=== PATIENT | male | born 1950 | race Caucasian/White ===

== ENCOUNTER 2018-04-10 13:42 | Emergency (ER) | payer OTHER, BC ==
--- OUTSIDE RECORDS SUMMARY | 2018-04-10 13:45 | XMS REPORT | Clinical Summary ---
:1950 Author Organization [facility] Address [address] [place] [address] Care Team Providers Name Role Phone Asked, No Pcp Primary Care Provider Unavailable Allergies No Known Allergies Current Medications Prescription Sig. Disp. Refills Start End Status Date Date clonAZEPAM (KlonoPIN) Take 0.5 mg by 2 Active 0.5 MG tablet mouth 3 (three) 6 times a day as needed. risperiDONE Take 1 mg by 2 Active (RisperDAL) 1 MG mouth 2 (two) 6 tablet times a day. traZODone (DESYREL) Take 300 mg by 2 Active 150 MG tablet mouth nightly. 6 PROAIR HFA 90 USE 2 PUFFS BY 6 Active mcg/actuation inhaler MOUTH EVERY 6 6 HOURS NEEDED lithium 300 MG capsule Take 300 mg by Active mouth 2 (two) times a day with meals. gabapentin (NEURONTIN) Take 300 mg by Active 300 mg capsule mouth daily. QUEtiapine XR Take 400 mg by Active (SEROquel XR) 400 MG mouth nightly. 24 hr tablet 2 TABLET mirtazapine (REMERON) Take 15 mg by Active 15 MG tablet mouth nightly. diphenhydrAMINE Take 25 mg by Active (BENADRYL) 25 mg mouth nightly tablet as needed for sleep. fentaNYL (DURAGESIC) Place 1 patch Discontinued on the skin 018 every third day. amitriptyline (ELAVIL) Take 10 mg by 0 Discontinued 10 MG tablet mouth nightly. 6 018 HYDROcodone-acetaminop Take 1 tablet 0 Discontinued hen (NORCO 10-325) by mouth 3 6 018 10-325 mg per tablet (three) times a day. methocarbamol TAKE 1 TABLET 0 Discontinued (ROBAXIN) 500 MG TWICE A DAY FOR 6 018 tablet 28 DAY(S) sertraline (ZOLOFT) Take 200 mg by 2 Discontinued 100 MG tablet mouth every 6 018 morning. levoFLOXacin Take 1 tablet 7 tablet 0 (LEVAQUIN) 500 MG (500 mg total) 8 018 tablet by mouth daily for 7 days. methylPREDNISolone Take 1 tablet 30 tablet 0 (MEDROL) 4 MG tablet (4 mg total) by 8 018 mouth after lunch - one time for 30 days. methylPREDNISolone Take 1 tablet 30 tablet 0 (MEDROL) 4 MG tablet (4 mg total) by 8 018 mouth Medrol Dose Pack Scheduling ONLY for 30 days. methylPREDNISolone Take 1 tablet 70 tablet 0 (MEDROL) 4 MG tablet (4 mg total) by 8 018 mouth 4 times daily tapering for 30 days. methylPREDNISolone Take 1 tablet 90 tablet 0 (MEDROL) 4 MG tablet (4 mg total) by 8 018 mouth 3 times daily around food for 30 days. methylPREDNISolone Take 1 tablet 30 tablet 0 (MEDROL) 8 MG tablet (8 mg total) by 8 018 mouth before breakfast - one time for 30 days. methylPREDNISolone Take 1 tablet 30 tablet 0 (MEDROL) 8 MG tablet (8 mg total) by 8 018 mouth nightly - one time for 30 days. methylPREDNISolone Take 1 tablet 30 tablet 0 (MEDROL) 8 MG tablet (8 mg total) by 8 018 mouth nightly - one time for 30 days. tiotropium (SPIRIVA) Place 1 puff (1 30 capsule 0 18 mcg per inhalation capsule total) 8 018 capsule into inhaler and inhale once daily for 30 days. fluticasone-vilanterol Inhale 1 30 each 0 (BREO ELLIPTA) 100-25 inhalations 8 018 mcg/dose blister with once daily for device powder for 30 days. inhalation albuterol (PROAIR Inhale 2 puffs 18 g 11 HFA,PROVENTIL every 6 (six) 8 018 HFA,VENTOLIN HFA) 90 hours as needed mcg/actuation inhaler for wheezing for up to 30 days. Active Problems Problem Noted Date Suicidal ideation 02/19/2018 Encounters Date Type Specialty Care Team Description 02/18/2018 - Hospital Encounter Intensive Care Hema Zacarias Suicidal ideation (Primary Dx); 02/21/2018 Sterling Mccord, Wheezing; COPD exacerbation; Mariano Madera MD Kandala, Ranganath, MD Korimilli, Vijay, MD 08/31/2017 Emergency Emergency Medicine [place] Mild episode of MD Reji recurrent major depressive disorder (Primary Dx) after 04/09/2017 Family History Medical History Relation Name Comments Cancer Brother Diabetes Brother Heart disease Father Cancer Mother Diabetes Mother Relation Name Status Comments Brother Father Mother Social History Tobacco Use Types Packs/Day Years Used Date Heavy Tobacco Smoker Started: 04/22/1964 Smokeless Tobacco: Current User Alcohol Use Drinks/Week oz/Week Comments No Sex Assigned at Date Recorded Not on file Last Filed Vital Signs Vital Sign Reading Time Taken Blood Pressure 146/88 02/21/2018 7:51 PM CDT Pulse 99 02/21/2018 7:51 PM CDT Temperature 37.3 C (99.1 F) 02/21/2018 8:00 PM CDT Respiratory Rate 20 02/21/2018 7:51 PM CDT Oxygen Saturation 94% 02/21/2018 7:51 PM CDT Inhaled Oxygen Concentration - - Weight 60.1 kg (132 lb 6.4 oz) 02/21/2018 5:00 AM CDT Height 180.3 cm (5' 11") 02/19/2018 7:25 AM CDT Body Mass Index 18.47 02/21/2018 5:00 AM CDT Plan of Treatment Health Maintenance Due Date Last Done Comments COLON CANCER SCREENING 1999 SHINGRIX VACCINE (#1) 1999 ZOSTER VACCINE 2009 PNEUMOCOCCAL POLYSACCHARIDE VACCINE AGE 65 AND OVER 2014 PNEUMOCOCCAL-13 2014 INFLUENZA VACCINE 05/02/2018 Procedures Procedure Name Priority Date/Time Associated Comments Diagnosis ESTIMATED GFR Routine 02/21/2018 5:10 Results for this AM CDT procedure are in the results section. HC COMPLETE BLD COUNT Routine 02/21/2018 5:10 Results for this W/AUTO DIFF AM CDT procedure are in the results section. BASIC METABOLIC PANEL Routine 02/21/2018 5:10 Results for this AM CDT procedure are in the results section. ECG 12-LEAD Routine 02/20/2018 8:32 Results for this AM CDT procedure are in the results section. ESTIMATED GFR Routine 02/20/2018 3:34 Results for this AM CDT procedure are in the results section. PHOSPHORUS LEVEL Routine 02/20/2018 3:34 Results for this AM CDT procedure are in the results section. MAGNESIUM LEVEL Routine 02/20/2018 3:34 Results for this AM CDT procedure are in the results section. IONIZED CALCIUM Routine 02/20/2018 3:34 Results for this AM CDT procedure are in the results section. HC COMPLETE BLD COUNT Routine 02/20/2018 3:34 Results for this W/AUTO DIFF AM CDT procedure are in the results section. BASIC METABOLIC PANEL Routine 02/20/2018 3:34 Results for this AM CDT procedure are in the results section. TROPONIN Timed 02/19/2018 9:53 Results for this AM CDT procedure are in the results section. ECG 12-LEAD Routine 02/19/2018 8:37 Results for this AM CDT procedure are in the results section. POC GLUCOSE Routine 02/19/2018 8:15 Results for this AM CDT procedure are in the results section. POC GLUCOSE Routine 02/19/2018 4:17 Results for this AM CDT procedure are in the results section. TROPONIN Timed 02/19/2018 4:00 Results for this AM CDT procedure are in the results section. ECG 12-LEAD Routine 02/19/2018 3:11 Results for this AM CDT procedure are in the results section. TROPONIN Timed 02/18/2018 11:20 Results for this PM CDT procedure are in the results section. URINE DRUGS OF ABUSE STAT 02/18/2018 11:00 Results for this SCREEN PM CDT procedure are in the results section. URINALYSIS SCREEN AND STAT 02/18/2018 11:00 Results for this MICROSCOPY, WITH REFLEX PM CDT procedure are in TO CULTURE the results section. URINE CULTURE STAT 02/18/2018 11:00 Results for this PM CDT procedure are in the results section. POC GLUCOSE Routine 02/18/2018 9:40 Results for this PM CDT procedure are in the results section. CT HEAD WO CONTRAST STAT 02/18/2018 8:16 Results for this PM CDT procedure are in the results section. ESTIMATED GFR STAT 02/18/2018 7:35 Results for this PM CDT procedure are in the results section. SALICYLATE LEVEL STAT 02/18/2018 7:35 Results for this PM CDT procedure are in the results section. ACETAMINOPHEN LEVEL STAT 02/18/2018 7:35 Results for this PM CDT procedure are in the results section. ALCOHOL LEVEL, BLOOD STAT 02/18/2018 7:35 Results for this PM CDT procedure are in the results section. THYROID STIMULATING STAT 02/18/2018 7:35 Results for this HORMONE PM CDT procedure are in the results section. T4, FREE STAT 02/18/2018 7:35 Results for this PM CDT procedure are in the results section. B NATRIURETIC PEPTIDE STAT 02/18/2018 7:35 Results for this PM CDT procedure are in the results section. TROPONIN STAT 02/18/2018 7:35 Results for this PM CDT procedure are in the results section. CREATINE KINASE, TOTAL STAT 02/18/2018 7:35 Results for this (CPK) PM CDT procedure are in the results section. COMPREHENSIVE METABOLIC STAT 02/18/2018 7:35 Results for this PANEL PM CDT procedure are in the results section. HC COMPLETE BLD COUNT STAT 02/18/2018 7:35 Results for this W/AUTO DIFF PM CDT procedure are in the results section. XR CHEST 1 VW PORTABLE STAT 02/18/2018 7:30 Results for this PM CDT procedure are in the results section. ECG 12-LEAD STAT 02/18/2018 7:19 Results for this PM CDT procedure are in the results section. ECG ED PRELIMINARY Routine 02/18/2018 7:08 Results for this INTERPRETATION PM CDT procedure are in the results section. POC GLUCOSE Routine 02/18/2018 7:08 Results for this PM CDT procedure are in the results section. ECG ED PRELIMINARY Routine 08/31/2017 3:50 Results for this INTERPRETATION PM [facility]ACT[facility]ESSION[facility] procedure are in the results section. after 04/09/2017 Results Estimated GFR (02/21/2018 5:10 AM)Only the most recent of3 resultswithin the time period is included. GFR Non Af Amer 84 mL/min/1.73 m2 [facility] DEPARTMENT OF PATHOLOGY AND GENOMIC MEDICINE GFR Af Amer >90 mL/min/1.73 m2 [facility] DEPARTMENT OF Comment: PATHOLOGY AND GENOMIC Chronic kidney disease: <60 mL/min/1.73m2 MEDICINE Kidney failure: <15 mL/min/1.73m2 The estimated GFR is calculated from the IDMS-traceable Modification of Diet in Renal Disease Equation. The accuracy of the calculation is poor when the creatinine is normal. Calculated values >90 mL/min/1.73m2 are not reported. This equation has not been validated in children (<18 years), women, the elderly (>70 years), or ethnic groups other than Caucasians and Americans. Specimen Plasma specimen Performing Organization Address City/State/Zipcode Phone Number [facility] DEPARTMENT OF PATHOLOGY [address] [place] [address] AND [facility] CBC with platelet and differential (02/21/2018 5:10 AM)Only the most recent of3 resultswithin the time period is included. WBC 22.9 (H) 4.5 - 11.0 k/uL [facility] DEPARTMENT OF PATHOLOGY AND GENOMIC MEDICINE RBC 4.25 (L) 4.40 - 6.00 m/uL [facility] DEPARTMENT OF PATHOLOGY AND GENOMIC MEDICINE HGB 13.5 (L) 14.0 - 18.0 g/dL [facility] DEPARTMENT OF PATHOLOGY AND GENOMIC MEDICINE HCT 41.3 41.0 - 51.0 % [facility] DEPARTMENT OF PATHOLOGY AND GENOMIC MEDICINE MCV 97.2 82.0 - 100.0 fL [facility] DEPARTMENT OF PATHOLOGY AND GENOMIC MEDICINE MCH 31.8 27.0 - 34.0 pg [facility] DEPARTMENT OF PATHOLOGY AND GENOMIC MEDICINE MCHC 32.7 31.0 - 37.0 g/dL [facility] DEPARTMENT OF PATHOLOGY AND GENOMIC MEDICINE RDW - SD 57.6 (H) 37.0 - 55.0 fL [facility] DEPARTMENT OF PATHOLOGY AND GENOMIC MEDICINE MPV 9.8 6.9 - 11.0 fL [facility] DEPARTMENT OF PATHOLOGY AND GENOMIC MEDICINE Platelet count 348 150 - 400 K/uL [facility] DEPARTMENT OF PATHOLOGY AND GENOMIC MEDICINE Nucleated RBC 0.00 /100 WBC [facility] DEPARTMENT OF PATHOLOGY AND GENOMIC MEDICINE Neutrophils 94.2 (H) 39.0 - 69.0 % [facility] DEPARTMENT OF PATHOLOGY AND GENOMIC MEDICINE Lymphocytes 2.3 (L) 25.0 - 45.0 % [facility] DEPARTMENT OF PATHOLOGY AND GENOMIC MEDICINE Monocytes 2.8 0.0 - 10.0 % [facility] DEPARTMENT OF PATHOLOGY AND GENOMIC MEDICINE Eosinophils 0.0 0.0 - 5.0 % [facility] DEPARTMENT OF PATHOLOGY AND GENOMIC MEDICINE Basophils 0.1 0.0 - 1.0 % [facility] DEPARTMENT OF PATHOLOGY AND GENOMIC MEDICINE Immature granulocytes 0.6 0.0 - 1.0 % [facility] DEPARTMENT OF PATHOLOGY AND GENOMIC MEDICINE Specimen Blood Performing Organization Address City/[facility] Phone Number [facility] DEPARTMENT OF PATHOLOGY [address] [place] [address] [employer] Basic metabolic panel (02/21/2018 5:10 AM)Only the most recent of2 resultswithin the time period is included. Sodium 140 135 - 148 mEq/L [facility] DEPARTMENT OF PATHOLOGY AND GENOMIC MEDICINE Potassium 4.4 3.5 - 5.0 mEq/L [facility] DEPARTMENT OF PATHOLOGY AND GENOMIC MEDICINE Chloride 106 98 - 112 mEq/L [facility] DEPARTMENT OF PATHOLOGY AND GENOMIC MEDICINE CO2 21 (L) 24 - 31 mEq/L [facility] DEPARTMENT OF PATHOLOGY AND GENOMIC MEDICINE Anion gap 13@ANIO 7 - 15 mEq/L [facility] DEPARTMENT OF PATHOLOGY AND GENOMIC MEDICINE BUN 24 (H) 8 - 23 mg/dL [facility] DEPARTMENT OF PATHOLOGY AND GENOMIC MEDICINE Creatinine 0.9 0.7 - 1.2 mg/dL [facility] DEPARTMENT OF PATHOLOGY AND GENOMIC MEDICINE Glucose 127 (H) 65 - 99 mg/dL [facility] DEPARTMENT OF PATHOLOGY AND GENOMIC MEDICINE Calcium 9.6 8.8 - 10.2 mg/dL [facility] DEPARTMENT OF PATHOLOGY AND GENOMIC MEDICINE Specimen Plasma specimen Performing Organization Address [facility] Centercode Phone Number [facility] PATHOLOGY [address] [place] [phone] [facility] [employer] ECG 12 lead (02/20/2018 8:32 AM)Only the most recent of4 resultswithin the time period is included. Ventricular rate 92 [facility] Atrial rate 92 [facility] VT interval 162 [facility] QRSD interval 96 [facility] QT interval 364 [facility] QTC interval 450 [facility] P axis 1 79 [facility] QRS axis 1 79 [facility] T wave axis 62 [facility] EKG impression Normal sinus rhythm-ST elevation, consider inferior injury or acute infarct-Abnormal ECG-In automated comparison with ECG of 19-FEB-2018 08:37 ,-ST elevation now present in Inferior leads-Nonspecific T wave abnormality no longer evident in Lateral [facility] MUSE leads-Electronically Signed By Alex Beth ([id number]) on 2017 10:37:12 AM Performing Organization Address City/State/Zipcode Phone Number [facility] MUSE [address] [place] [address] Phosphorus level (02/20/2018 3:34 AM) Phosphorus 3.5 2.4 - 4.5 mg/dL [facility] DEPARTMENT OF PATHOLOGY AND GENOMIC MEDICINE Specimen Plasma specimen Performing Organization Address City/[facility] Centercode Phone Number [facility] DEPARTMENT OF PATHOLOGY [address] [place] [address]. [place] [address] AND [facility] Magnesium level (02/20/2018 3:34 AM) Magnesium 2.1 1.6 - 2.4 mg/dL [facility] DEPARTMENT OF PATHOLOGY AND GENOMIC MEDICINE Specimen Plasma specimen Performing Organization Address [facility] Centercode Phone Number [facility] DEPARTMENT OF PATHOLOGY [address] [place] [address]. [place] [address] AND [facility] Ionized calcium (02/20/2018 3:34 AM) pH 7.42 [facility] DEPARTMENT OF PATHOLOGY AND GENOMIC MEDICINE Ionized calcium 1.19 1.11 - 1.32 mmol/L [facility] DEPARTMENT OF PATHOLOGY AND GENOMIC MEDICINE Specimen Plasma specimen Performing Organization Address [facility] Centercode Phone Number [facility] DEPARTMENT OF PATHOLOGY [address] [place] [address]. [place] [address] AND [facility] Troponin (02/19/2018 9:53 AM)Only the most recent of4 resultswithin the time period is included. Troponin <0.30 0.00 - 0.30 ng/mL [facility] DEPARTMENT OF PATHOLOGY Comment: AND GENOMIC MEDICINE 0.11 - 1.49 ng/mlMay indicate increased risk of acute coronary syndrome. >=1.5 ng/mlConsistent with acute myocardial infarction. The diagnostic value of a single normal or non-diagnostic result is questionable.Serial samples at 2-6 hour intervals are required to rule out acute myocardial injury. Specimen Plasma specimen Performing Organization Address City/State/Zipcode Phone Number [facility] DEPARTMENT OF PATHOLOGY [address] [place] [phone] AND [facility] POC glucose (02/19/2018 8:15 AM)Only the most recent of4 resultswithin the time period is included. POC glucose 158 (H) 65 - 99 mg/dL [facility] DEPARTMENT OF PATHOLOGY AND Comment: GENOMIC MEDICINE RN Notified Meter ID: [id number] Transition Advisor: Shellie Nieto Performing Organization Address City/[facility] Centercode Phone Number [facility] DEPARTMENT OF PATHOLOGY [address] [place] [address] AND [facility] Urinalysis screen and microscopy, with reflex to culture (02/18/2018 11:00 PM) Specimen site Clean catch [facility] DEPARTMENT OF PATHOLOGY AND GENOMIC MEDICINE Color, UA Yellow [facility] DEPARTMENT OF PATHOLOGY AND GENOMIC MEDICINE Appearance, UA Clear [facility] DEPARTMENT OF PATHOLOGY AND GENOMIC MEDICINE Specific gravity, UA 1.018 1.001 - 1.030 [facility] DEPARTMENT OF PATHOLOGY AND GENOMIC MEDICINE pH, UA 6.0 5.0 - 9.0 [facility] DEPARTMENT OF PATHOLOGY AND GENOMIC MEDICINE Protein, UA Negative Negative [facility] DEPARTMENT OF PATHOLOGY AND GENOMIC MEDICINE Glucose, UA Negative Negative [facility] DEPARTMENT OF PATHOLOGY AND GENOMIC MEDICINE Ketones, UA Negative Negative [facility] DEPARTMENT OF PATHOLOGY AND GENOMIC MEDICINE Bilirubin, UA Negative Negative [facility] DEPARTMENT OF PATHOLOGY AND GENOMIC MEDICINE Blood, UA Negative Negative [facility] DEPARTMENT OF PATHOLOGY AND GENOMIC MEDICINE Nitrite, UA Negative Negative [facility] DEPARTMENT OF PATHOLOGY AND GENOMIC MEDICINE Urobilinogen, UA 2.0 (A) <2.0 E.U./dL [facility] DEPARTMENT OF PATHOLOGY AND GENOMIC MEDICINE Leukocyte esterase, UA Negative Negative [facility] DEPARTMENT OF PATHOLOGY AND GENOMIC MEDICINE Epithelial cells, UA <1 /HPF [facility] DEPARTMENT OF PATHOLOGY AND GENOMIC MEDICINE Round epithelial cells, UA <1 0 - 5 /HPF [facility] DEPARTMENT OF PATHOLOGY AND GENOMIC MEDICINE WBC, UA 1 0 - 1 /HPF [facility] DEPARTMENT OF PATHOLOGY AND GENOMIC MEDICINE RBC, UA 1 0 - 5 /HPF [facility] DEPARTMENT OF PATHOLOGY AND GENOMIC MEDICINE Bacteria, UA None seen None seen [facility] DEPARTMENT OF PATHOLOGY AND GENOMIC MEDICINE Yeast, UA None seen [facility] DEPARTMENT OF PATHOLOGY AND GENOMIC MEDICINE Yeast with pseudohyphae, UA None seen [facility] DEPARTMENT OF PATHOLOGY AND GENOMIC MEDICINE Specimen Urine Performing Organization Address City/[facility]ercode Phone Number [facility] DEPARTMENT OF PATHOLOGY [address] [place] [phone] AND [facility] Urine drugs of abuse screen (02/18/2018 11:00 PM) Amphetamine screen, urine Negative [facility] DEPARTMENT OF PATHOLOGY AND GENOMIC MEDICINE Barbiturate screen, urine Negative [facility] DEPARTMENT OF PATHOLOGY AND GENOMIC MEDICINE Benzodiazepine screen, Positive (A) [facility] DEPARTMENT OF urine PATHOLOGY AND GENOMIC MEDICINE Cannabinoid screen, urine Negative [facility] DEPARTMENT OF PATHOLOGY AND GENOMIC MEDICINE Cocaine screen, urine Negative [facility] DEPARTMENT OF PATHOLOGY AND GENOMIC MEDICINE Methadone metabolite Negative [facility] DEPARTMENT OF (EDDP), urine PATHOLOGY AND GENOMIC MEDICINE Opiates screen, urine Negative [facility] DEPARTMENT OF PATHOLOGY AND GENOMIC MEDICINE Phencyclidine screen, urine Negative [facility] DEPARTMENT OF PATHOLOGY AND GENOMIC MEDICINE Tricyclic screen, urine Positive (A) [facility] DEPARTMENT OF Comment: PATHOLOGY AND GENOMIC Drug screen minimum concentration of detectability MEDICINE [id number] ng/mL Barbiturates 200 ng/mL Qfezpxqmqrqwzfr645 ng/mL Qaitzzf933 ng/mL Hgftnwqtb075 ng/mL Taepfwi077 ng/mL Phencyclidine 25 ng/mL Rdtthlvxweye53 ng/mL [id number] ng/mL Negative test results indicates presumptive evidence of lack of clinically significant drug concentration in this urine specimen. Positive test results are presumptive evidence of clinically significant drug concentration in this urine specimen. Testing performed for medical purposes only. Specimen Urine Performing Organization Address City/State/Zipcode Phone Number [facility] DEPARTMENT OF PATHOLOGY [address] [place] [address] AND [facility] Urine culture (02/18/2018 11:00 PM) Urine culture SEE COMMENTComment: Bacteriuria [facility] DEPARTMENT OF PATHOLOGY screen negative. AND [facility] MEDICINE Performing Organization Address City/State/Zipcode Phone Number [facility] DEPARTMENT OF PATHOLOGY [address] [place] [address] AND [facility] CT Head Wo Contrast (02/18/2018 8:16 PM) Narrative Performed At EXAMINATION:CT HEAD WO CONTRAST [facility] CLINICAL HISTORY:head injury during si attempt COMPARISON:March 03, 2014 TECHNIQUE: CT imaging was performed with iterative reconstruction technique and/or automated exposure control to reduce radiation dose. Findings: No intracranial hemorrhage, acute transcortical ischemia, extra-axial fluid collections or parenchymal mass lesions. No skull fractures or aggressive bony lesions. Intracranial vascular calcifications. Moderate mucosal inflammatory changes in paranasal sinuses. Mastoid air cells are clear. IMPRESSION: No acute intracranial abnormalities. [facility]-[id number] Procedure Note Hm Interface, Radiology Results Incoming - 02/18/2018 8:22 PM CDT EXAMINATION: CT HEAD WO CONTRAST CLINICAL HISTORY: head injury during si attempt COMPARISON: March 03, 2014 TECHNIQUE: CT imaging was performed with iterative reconstruction technique and /or automated exposure control to reduce radiation dose. Findings: No intracranial hemorrhage, acute transcortical ischemia, extra-axial fluid collections or parenchymal mass lesions. No skull fractures or aggressive bony lesions. Intracranial vascular calcifications. Moderate mucosal inflammatory changes in paranasal sinuses. Mastoid air cells are clear. IMPRESSION: No acute intracranial abnormalities. [facility]-[id number] Performing Organization Address City/[facility]/Zipcode Phone Number [facility] [address] [place] [address] Thyroid stimulating hormone (02/18/2018 7:35 PM) TSH 1.87 0.27 - 4.20 uIU/mL [facility] DEPARTMENT OF PATHOLOGY AND [facility] MEDICINE Specimen Plasma specimen Performing Organization Address [facility] Phone Number [facility] DEPARTMENT OF PATHOLOGY [address] [place] [address]. [place] [address] AND [facility] T4, free (02/18/2018 7:35 PM) T4, free 1.1 0.9 - 1.7 ng/dL [facility] DEPARTMENT OF PATHOLOGY AND [facility] MEDICINE Specimen Plasma specimen Performing Organization Address [facility] Phone Number [facility] DEPARTMENT OF PATHOLOGY [address] [place] [address]. [place] [address] AND [facility] B natriuretic peptide (02/18/2018 7:35 PM) BNP 10 0 - 100 pg/mL [facility] DEPARTMENT OF PATHOLOGY AND [facility] MEDICINE Specimen Blood Performing Organization Address [facility] Phone Number [facility] DEPARTMENT OF PATHOLOGY [address] [place] [address]. [place] [address] [facility] Creatine kinase, total (CPK) (02/18/2018 7:35 PM) Creatine kinase 41 39 - 308 U/L [facility] DEPARTMENT OF PATHOLOGY AND Intrinsic Medical Imaging MEDICINE Specimen Plasma specimen Performing Organization Address [facility] Cent[facility]ode Phone Number [facility] DEPARTMENT OF PATHOLOGY [address] [place] [address]. [place] [address] [facility] Alcohol level, blood (02/18/2018 7:35 PM) Alcohol None Detected mg/dL [facility] DEPARTMENT OF PATHOLOGY Comment: AND GENOMIC MEDICINE Normal None Detected Legal Intoxication in [place]80 mg/dL (0.08%) - Whole Blood Toxic [id number] mg/dL (0.2%) Potentially Felil702 - 500 mg/dL (0.35 - 0.5%) Alcohol percent None Detected % [facility] DEPARTMENT OF PATHOLOGY AND GENOMIC MEDICINE Specimen Plasma specimen Performing Organization Address City/[facility] Centercode Phone Number [facility] DEPARTMENT OF PATHOLOGY [address] [place] [address] [facility] Acetaminophen level (02/18/2018 7:35 PM) Acetaminophen level <8.3 10.0 - 30.0 ug/mL [facility] DEPARTMENT OF Comment: PATHOLOGY AND GENOMIC Therapeutic 10-30 ug/mL MEDICINE Possible Toxicity 150-200 ug/mL Probable Toxicity >200 ug/mL Specimen Plasma specimen Performing Organization Address City/State/Zipcode Phone Number [facility] DEPARTMENT OF PATHOLOGY [address] [place] [address] [facility] Salicylate level (02/18/2018 7:35 PM) Salicylate <0.4 (L) 3.0 - 30.0 mg/dL [facility] DEPARTMENT OF PATHOLOGY AND GENOMIC MEDICINE Specimen Plasma specimen Performing Organization Address City/[facility] Phone Number [facility] DEPARTMENT OF PATHOLOGY [address] [place] [address] [facility] Comprehensive metabolic panel (02/18/2018 7:35 PM) Sodium 140 135 - 148 mEq/L [facility] DEPARTMENT OF PATHOLOGY AND GENOMIC MEDICINE Potassium 4.3 3.5 - 5.0 mEq/L [facility] DEPARTMENT OF PATHOLOGY AND GENOMIC MEDICINE Chloride 103 98 - 112 mEq/L [facility] DEPARTMENT OF PATHOLOGY AND GENOMIC MEDICINE CO2 26 24 - 31 mEq/L [facility] DEPARTMENT OF PATHOLOGY AND GENOMIC MEDICINE Anion gap 11@ANIO 7 - 15 mEq/L [facility] DEPARTMENT OF PATHOLOGY AND GENOMIC MEDICINE BUN 15 8 - 23 mg/dL [facility] DEPARTMENT OF PATHOLOGY AND GENOMIC MEDICINE Creatinine 1.0 0.7 - 1.2 mg/dL [facility] DEPARTMENT OF PATHOLOGY AND GENOMIC MEDICINE Glucose 141 (H) 65 - 99 mg/dL [facility] DEPARTMENT OF PATHOLOGY AND GENOMIC MEDICINE Calcium 9.8 8.8 - 10.2 mg/dL [facility] DEPARTMENT OF PATHOLOGY AND GENOMIC MEDICINE Protein 7.2 6.3 - 8.3 g/dL [facility] DEPARTMENT OF PATHOLOGY AND GENOMIC MEDICINE Albumin 4.2 3.5 - 5.0 g/dL [facility] DEPARTMENT OF PATHOLOGY AND GENOMIC MEDICINE A/G ratio 1.4 0.7 - 3.8 [facility] DEPARTMENT OF PATHOLOGY AND GENOMIC MEDICINE Alkaline phosphatase 131 (H) 40 - 129 U/L [facility] DEPARTMENT OF PATHOLOGY AND GENOMIC MEDICINE AST 15 10 - 50 U/L [facility] DEPARTMENT OF PATHOLOGY AND GENOMIC MEDICINE ALT 8 5 - 50 U/L [facility] DEPARTMENT OF PATHOLOGY AND GENOMIC MEDICINE Total bilirubin 0.3 0.2 - 1.2 mg/dL [facility] DEPARTMENT OF PATHOLOGY AND GENOMIC MEDICINE Specimen Plasma specimen Performing Organization Address City/[facility] Centercode Phone Number [facility] DEPARTMENT OF PATHOLOGY [address] [place] [address] AND [facility]IC MEDICINE XR Chest 1 Vw Portable (02/18/2018 7:30 PM) Narrative Performed At EXAMINATION:XR CHEST 1 VW PORTABLE [facility] CLINICAL HISTORY:SHORTNESS OF BREATH COMPARISON:No priors IMPRESSION: Prominent scoliosis. Heart and mediastinum somewhat distorted. Bones are osteopenic. No definite consolidations are seen. [facility]-[id number] Procedure Note Hm Interface, Radiology Results Incoming - 02/18/2018 7:40 PM CDT EXAMINATION: XR CHEST 1 VW PORTABLE CLINICAL HISTORY: SHORTNESS OF BREATH COMPARISON: No priors IMPRESSION: Prominent scoliosis. Heart and mediastinum somewhat distorted. Bones are osteopenic. No definite consolidations are seen. [facility]-[id number] Performing Organization Address [facility] Centercode Phone Number [facility] [address] [place] [address] ECG ED Preliminary Interpretation - NOT AN ORDER (02/18/2018 7:08 PM)Only the most recent of2 resultswithin the time period is included. Narrative Performed At [facility] 02/19/20184:12 AM ECG ED Preliminary Interpretation - Not an Order Performed by: REGINO CULLEN Authorized by: HEMA ZACARIAS ECG reviewed by ED Physician in the absence of a corporate legal intern: yes Previous ECG: Previous ECG:Unavailable Interpretation: Interpretation: normal Rate: ECG rate:77 ECG rate assessment: normal Rhythm: Rhythm: sinus rhythm Ectopy: Ectopy: none QRS: QRS intervals:Normal Conduction: Conduction: normal ST segments: ST segments:Normal T waves: T waves: normal after 04/09/2017 Insurance Payer Benefit Plan / Group Subscriber ID Type Phone Address BCBS BCBS PAR/TRAD PLAN xxxxxxxxxxxx Indemnity MEDICARE MEDICARE PART A AND B xxxxxxxxxx Medicare [facility] CHOICE/CHOICE + xxxxxxxxx HMO/PPO Home: [address] [place], [place] [phone] [place] [address]
--- NOTE | 2018-04-10 14:43 | EDPHYS ---
Physician Documentation [facility] Name: Corey Mcadams Age: 67 yrs Sex: Male : 1950 Arrival Date: 04/10/2018 Time: 13:46 Bed 13 Private MD: Cecil Capellan R ED Physician Jeferson Walton HPI: 04/10 18:25 This 67 yrs old Male presents to ER via Ambulatory with complaints of Back gs Pain, Hearing Problems. 18:25 The patient presents with pain that is chronic. The symptoms are located in the lumbar gs area. Onset: The symptoms/episode began/occurred 1 week(s) ago. The pain does not radiate. Associated signs and symptoms: Pertinent negatives: abdominal pain, chest pain, constipation, incontinence, numbness. Modifying factors: the patient symptoms are aggravated by bending, lifting. Severity of symptoms: At their worst the symptoms were moderate, in the emergency department the symptoms have improved, mildly. The patient has experienced similar episodes in the past, chronically, has scoliosis. Historical: - Allergies: 14:08 No Known Allergies; aj - Home Meds: 14:08 fluoxetine 60 mg Oral tab 1 tab once daily [Active]; quetiapine 300 mg Oral tab 1 tab aj once daily [Active]; clonazepam 0.5 mg Oral TbDL 1 tab 2 times per day [Active]; trazodone 100 mg Oral tab 1 tab nightly [Active]; Vitamin E 400 IU 1 daily [Active]; B-6 100 mg one tab daily [Active]; - PMHx: 14:08 Anxiety; Bipolar disorder; Depression; aj - PSHx: 14:08 Appendectomy; aj - Immunization history:: Adult Immunizations up to date. - Social history:: Smoking status: Patient uses tobacco products, smokes one-half pack cigarettes per day. - Ebola Screening: : Patient negative for fever greater than or equal to 101.5 degrees Fahrenheit, and additional compatible Ebola Virus Disease symptoms Patient denies exposure to infectious person Patient denies travel to an Ebola-affected area in the 21 days before illness onset No symptoms or risks identified at this time. ROS: 18:25 Psych: Positive for auditory hallucinations, says hears music playing from time to time gs for over 20 years, Negative for suicide gesture, suicidal ideation, acute changes. Exam: 18:25 Head/Face: Normocephalic, atraumatic. Eyes: Pupils equal round and reactive to light, gs extra-ocular motions intact. Lids and lashes normal. Conjunctiva and sclera are non-icteric and not injected. Cornea within normal limits. Periorbital areas with no swelling, redness, or edema. ENT: Nares patent. No nasal discharge, no septal abnormalities noted. Tympanic membranes are normal and external auditory canals are clear. Oropharynx with no redness, swelling, or masses, exudates, or evidence of obstruction, uvula midline. Mucous membranes moist. Neck: Trachea midline, no thyromegaly or masses palpated, and no cervical lymphadenopathy. Supple, full range of motion without nuchal rigidity, or vertebral point tenderness. No Meningismus. Chest/axilla: Normal chest wall appearance and motion. Nontender with no deformity. No lesions are appreciated. Cardiovascular: Regular rate and rhythm with a normal S1 and S2. No gallops, murmurs, or rubs. Normal PMI, no JVD. No pulse deficits. Respiratory: Lungs have equal breath sounds bilaterally, clear to auscultation and percussion. No rales, rhonchi or wheezes noted. No increased work of breathing, no retractions or nasal flaring. Abdomen/GI: Soft, non-tender, with normal bowel sounds. No distension or tympany. No guarding or rebound. No evidence of tenderness throughout. Skin: Warm, dry with normal turgor. Normal color with no rashes, no lesions, and no evidence of cellulitis. MS/ Extremity: Pulses equal, no cyanosis. Neurovascular intact. Full, normal range of motion. Neuro: Awake and alert, GCS 15, oriented to person, place, time, and situation. Cranial nerves II-XII grossly intact. Motor strength 5/5 in all extremities. Sensory grossly intact. Cerebellar exam normal. Normal gait. 18:25 Constitutional: The patient appears alert, awake. 18:25 Back: Exam negative for acute changes, vertebral tenderness, significant scoliosis. Vital Signs: 14:08 BP 128 / 79; Pulse 87; Resp 18; Temp 98.8; Pulse Ox 97% on R/A; Weight 58.97 kg; Height aj 5 ft. 11 in. (180.34 cm); 15:00 BP 126 / 74; Pulse 82; Resp 19; Pulse Ox 98% on R/A; rb1 14:08 Body Mass Index 18.13 (58.97 kg, 180.34 cm) aj MDM: 14:42 Patient medically screened. gs 18:25 Data reviewed: vital signs, nurses notes. gs Administered Medications: No medications were administered Disposition: 04/10/18 14:43 Discharged to Home. Impression: Chronic pain syndrome, Auditory hallucinations. - Condition is Stable. - Discharge Instructions: Chronic Pain, Psychosis. - Medication Reconciliation Form, Thank You Letter, Antibiotic Education, Prescription Opioid Use form. - Follow up: Private Physician; When: 2 - 3 days; Reason: Re-evaluation by your physician. Signatures: Milana Akins RN RN aj Alyson An RN RN rb1 Jeferson Walton MD MD gs Corrections: (The following items were deleted from the chart) 15:22 14:43 04/10/2018 14:43 Discharged to Home. Impression: Chronic pain syndrome; Auditory rb1 hallucinations. Condition is Stable. Forms are Medication Reconciliation Form, Thank You Letter, Antibiotic Education, Prescription Opioid Use. Follow up: Private Physician; When: 2 - 3 days; Reason: Re-evaluation by your physician. gs
--- NOTE | 2018-04-10 14:43 | ER ---
Nurse's Notes [facility] Name: Corey Mcadams Age: 67 yrs Sex: Male : 1950 Arrival Date: 04/10/2018 Time: 13:46 Bed 13 Private MD: Cecil Capellan R Diagnosis: Chronic pain syndrome;Auditory hallucinations Presentation: 04/10 14:06 Presenting complaint: Patient states: Low back pain and C/O song repeating in his head. aj Transition of care: patient was not received from another setting of care. Onset of symptoms was April 10, 2018. Risk Assessment: Do you want to hurt yourself or someone else? Patient reports no desire to harm self or others. Initial Sepsis Screen: Does the patient meet any 2 criteria? No. Patient's initial sepsis screen is negative. Does the patient have a suspected source of infection? No. Patient's initial sepsis screen is negative. Care prior to arrival: None. 14:06 Method Of Arrival: Ambulatory aj 14:06 Acuity: CHERRY 4 aj Triage Assessment: 14:08 General: Appears in no apparent distress. comfortable, Behavior is calm, cooperative, aj appropriate for age. Pain: Complains of pain in lumbar area. Neuro: Level of Consciousness is awake, alert, obeys commands, Oriented to person, place, time, situation, Appropriate for age. Respiratory: Airway is patent Respiratory effort is even, unlabored, Respiratory pattern is regular, symmetrical. Derm: Skin is intact, is healthy with good turgor, Skin is pink, warm \T\ dry. normal. Musculoskeletal: Range of motion: Reports pain in lumbar area. Historical: - Allergies: 14:08 No Known Allergies; aj - Home Meds: 14:08 fluoxetine 60 mg Oral tab 1 tab once daily [Active]; quetiapine 300 mg Oral tab 1 tab aj once daily [Active]; clonazepam 0.5 mg Oral TbDL 1 tab 2 times per day [Active]; trazodone 100 mg Oral tab 1 tab nightly [Active]; Vitamin E 400 IU 1 daily [Active]; B-6 100 mg one tab daily [Active]; - PMHx: 14:08 Anxiety; Bipolar disorder; Depression; aj - PSHx: 14:08 Appendectomy; aj - Immunization history:: Adult Immunizations up to date. - Social history:: Smoking status: Patient uses tobacco products, smokes one-half pack cigarettes per day. - Ebola Screening: : Patient negative for fever greater than or equal to 101.5 degrees Fahrenheit, and additional compatible Ebola Virus Disease symptoms Patient denies exposure to infectious person Patient denies travel to an Ebola-affected area in the 21 days before illness onset No symptoms or risks identified at this time. Screenin:05 Abuse screen: Denies threats or abuse. Nutritional screening: No deficits noted. rb1 Tuberculosis screening: No symptoms or risk factors identified. Fall Risk None identified. Assessment: 14:05 General: Appears in no apparent distress. comfortable, slender, Behavior is calm, rb1 cooperative, Denies fever. Pain: Complains of pain in lumbar area Pain currently is 5 out of 10 on a pain scale. Pain began chronic pain. Neuro: Level of Consciousness is awake, alert, obeys commands, Oriented to person, place, time, situation. Cardiovascular: Capillary refill < 3 seconds is brisk in bilateral fingers. Respiratory: Airway is patent Respiratory effort is even, unlabored, Respiratory pattern is regular, symmetrical. GI: No signs and/or symptoms were reported involving the gastrointestinal system. : No signs and/or symptoms were reported regarding the genitourinary system. Derm: Skin is pink, warm \T\ dry. Musculoskeletal: Range of motion: intact in all extremities. 15:00 Reassessment: Patient appears in no apparent distress at this time. No changes from rb1 previously documented assessment. 15:12 Reassessment: Pt. needed to use the phone to call for transportation home. rb1 Vital Signs: 14:08 BP 128 / 79; Pulse 87; Resp 18; Temp 98.8; Pulse Ox 97% on R/A; Weight 58.97 kg; Height aj 5 ft. 11 in. (180.34 cm); 15:00 BP 126 / 74; Pulse 82; Resp 19; Pulse Ox 98% on R/A; rb1 14:08 Body Mass Index 18.13 (58.97 kg, 180.34 cm) aj ED Course: 13:46 Patient arrived in ED. mr 13:46 Cecil Capellan MD is Private Physician. mr 14:05 Patient has correct armband on for positive identification. Bed in low position. Call rb1 light in reach. Side rails up X 1. Pulse ox on. NIBP on. 14:07 Triage completed. aj 14:07 Jeferson Walton MD is Attending Physician. 14:08 Arm band placed on left wrist. Patient placed in an exam room, on a stretcher. aj 14:19 Alyson An, RN is Primary Nurse. rb1 15:22 No provider procedures requiring assistance completed. Patient did not have IV access rb1 during this emergency room visit. Administered Medications: No medications were administered Outcome: 14:43 Discharge ordered by MD. gs 15:22 Patient left the ED. rb1 15:22 Discharged to home ambulatory. rb1 15:22 Condition: stable 15:22 Discharge instructions given to patient, Instructed on discharge instructions, follow up and referral plans. Demonstrated understanding of instructions, follow-up care, Prescriptions given X none Signatures: Milana Akins, YEVGENIY RN Taylor Silveira Rebecca, RN RN rb1 Jeferson Walton MD MD
== END 2018-04-10 15:22 | disposition home or self-care (01) ==
LOC: ER 13:42
DX: G89.4 Chronic pain syndrome (principal); F17.210 Nicotine dependence, cigarettes, uncomplicated; F31.9 Bipolar disorder, unspecified
CPT/HCPCS: 99283

== ENCOUNTER 2018-05-27 16:39 | Emergency (ER) | payer OTHER, BC ==
--- OUTSIDE RECORDS SUMMARY | 2018-05-27 16:42 | XMS REPORT | Clinical Summary ---
:1950 Author Organization [facility] Address [address] [place] [address] Care Team Providers Name Role Phone Asked, [...] recurrent major depressive disorder (Primary Dx) after 05/26/2017 Family History Medical History Relation Name Comments [...] 08/31/2017 3:50 Results for this INTERPRETATION PM [employer]AND procedure are in the results section. after 05/26/2017 Results Estimated GFR (02/21/2018 5:10 AM)Only the most recent of3 resultswithin the time period is included. GFR Non Af Amer 84 mL/min/1.73 m2 [facility] DEPARTMENT OF PATHOLOGY AND GENOMIC MEDICINE GFR Af Amer >90 mL/min/1.73 m2 [facility] DEPARTMENT OF Comment: PATHOLOGY AND GENOMIC Chronic [...] specimen Performing Organization Address City/State/Zipcode Phone Number [facility] DEPARTMENT OF PATHOLOGY [address] [place] [address] AND [employer] [facility] CBC with platelet and differential (02/21/2018 5:10 AM)Only the most recent of3 resultswithin the time period is included. WBC 22.9 (H) 4.5 - 11.0 k/uL [facility] DEPARTMENT OF PATHOLOGY AND GENOMIC MEDICINE RBC 4.25 (L) 4.40 - 6.00 m/uL [facility]PARTMENT OF PATHOLOGY AND GENOMIC MEDICINE HGB 13.5 (L) 14.0 - 18.0 g/dL [facility]PARTMENT OF PATHOLOGY AND GENOMIC MEDICINE HCT 41.3 41.0 - 51.0 % [facility]PARTMENT OF PATHOLOGY AND GENOMIC MEDICINE MCV 97.2 82.0 - 100.0 fL [facility]PARTMENT OF PATHOLOGY AND GENOMIC MEDICINE MCH 31.8 27.0 - 34.0 pg [facility] DEPARTMENT OF PATHOLOGY AND GENOMIC MEDICINE MCHC 32.7 31.0 - 37.0 g/dL [facility] DEPARTMENT OF PATHOLOGY AND GENOMIC MEDICINE RDW - SD 57.6 (H) 37.0 - 55.0 fL [facility] DEPARTMENT OF PATHOLOGY AND GENOMIC MEDICINE MPV 9.8 6.9 - 11.0 fL [facility] OF PATHOLOGY AND GENOMIC MEDICINE Platelet count 348 150 - 400 K/uL [facility]MENT OF PATHOLOGY AND GENOMIC MEDICINE Nucleated RBC 0.00 /100 WBC [facility] DEPARTMENT OF PATHOLOGY AND GENOMIC MEDICINE Neutrophils 94.2 (H) 39.0 - 69.0 % [facility]PARTMENT OF PATHOLOGY AND GENOMIC MEDICINE Lymphocytes 2.3 (L) 25.0 - 45.0 % [facility]PARTMENT OF PATHOLOGY AND GENOMIC MEDICINE Monocytes 2.8 0.0 - 10.0 % [facility] OF PATHOLOGY AND GENOMIC MEDICINE Eosinophils 0.0 0.0 - 5.0 % [facility]MENT OF PATHOLOGY AND GENOMIC MEDICINE Basophils 0.1 0.0 - 1.0 % [facility]MENT OF PATHOLOGY AND GENOMIC MEDICINE Immature granulocytes 0.6 0.0 - 1.0 % [facility]MENT OF PATHOLOGY AND GENOMIC MEDICINE Specimen Blood Performing Organization Address City/[facility] Phone Number [facility] DEPARTMENT OF PATHOLOGY [address] [place] [address] [facility] Basic metabolic panel (02/21/2018 5:10 AM)Only the most recent of2 resultswithin the time period is included. Sodium 140 135 - 148 mEq/L [facility] DEPARTMENT OF PATHOLOGY AND GENOMIC MEDICINE Potassium 4.4 3.5 - 5.0 mEq/L [facility]PARTMENT OF PATHOLOGY AND GENOMIC MEDICINE Chloride 106 98 - 112 mEq/L [facility] DEPARTMENT OF PATHOLOGY AND GENOMIC MEDICINE CO2 21 (L) 24 - 31 mEq/L [facility] DEPARTMENT OF PATHOLOGY AND GENOMIC MEDICINE Anion gap 13@ANIO 7 - 15 mEq/L [facility] DEPARTMENT OF PATHOLOGY AND GENOMIC MEDICINE BUN 24 (H) 8 - 23 mg/dL [facility] DE[facility]MENT OF PATHOLOGY AND GENOMIC MEDICINE Creatinine 0.9 0.7 - 1.2 mg/dL [facility]MENT OF PATHOLOGY AND GENOMIC MEDICINE Glucose 127 (H) 65 - 99 mg/dL [facility] DEPARTMENT OF PATHOLOGY AND GENOMIC MEDICINE Calcium 9.6 8.8 - 10.2 mg/dL [facility] DEPARTMENT OF PATHOLOGY AND GENOMIC MEDICINE Specimen Plasma specimen Performing Organization Address [facility] Phone [facility] PATHOLOGY [address] [place] [address] [facility] ECG 12 lead (02/20/2018 8:32 AM)Only the most recent of4 resultswithin the time period is included. Ventricular rate 92 [facility] MUSE Atrial rate 92 [facility] MUSE ID interval 162 [facility] MUSE QRSD interval 96 [...] wave abnormality no longer evident in Lateral [facility] MUSE leads-Electronically Signed By Alex Beth ([id number]) on 2017 10:37:12 AM Performing Organization Address City/State/Zipcode Phone Number [facility] MUSE [address] [place] [address] Phosphorus level (02/20/2018 3:34 AM) Phosphorus 3.5 2.4 - 4.5 mg/dL [facility] DEPARTMENT OF PATHOLOGY AND GENOMIC MEDICINE Specimen Plasma specimen Performing Organization Address City/[facility] Phone Number [facility] DEPARTMENT OF PATHOLOGY [address] [place] [address]. [place] [address] AND [facility] Magnesium level (02/20/2018 3:34 AM) Magnesium 2.1 1.6 - 2.4 mg/dL [facility] DEPARTMENT OF PATHOLOGY AND GENOMIC MEDICINE Specimen Plasma specimen Performing Organization Address [facility] Phone Number [facility] DEPARTMENT OF PATHOLOGY [address] [place] [address]. [place] [address] AND [facility] Ionized calcium (02/20/2018 3:34 AM) pH 7.42 [facility] DEPARTMENT OF PATHOLOGY AND GENOMIC MEDICINE Ionized calcium 1.19 1.11 - 1.32 mmol/L [facility] DEPARTMENT OF PATHOLOGY AND GENOMIC MEDICINE Specimen Plasma specimen Performing Organization Address [facility] Phone Number [facility] DEPARTMENT OF PATHOLOGY [address] [place] [address]. [place] [address] AND [facility] Troponin (02/19/2018 9:53 AM)Only the most recent of4 resultswithin the time period is included. Troponin <0.30 0.00 - 0.30 ng/mL [facility] DEPARTMENT OF PATHOLOGY Comment: AND GENOMIC MEDICINE 0.11 - 1.49 ng/mlMay indicate increased risk of acute coronary syndrome. >=1.5 ng/mlConsistent with acute myocardial infarction. The diagnostic value of a single normal or non-diagnostic result is questionable.Serial samples at 2-6 hour intervals are required to rule out acute myocardial injury. Specimen Plasma specimen Performing Organization Address City/State/Zipcode Phone Number [facility] DEPARTMENT OF PATHOLOGY [address] [place] [id number] AND [facility] POC glucose (02/19/2018 8:15 AM)Only the most recent of4 resultswithin the time period is included. POC glucose 158 (H) 65 - 99 mg/dL [facility] DEPARTMENT OF PATHOLOGY AND Comment: GENOMIC MEDICINE RN Notified Meter ID: [id number] Director Operations: Shellie Nieto Performing Organization Address City/[facility] Phone Number [facility] DEPARTMENT OF PATHOLOGY [address] [place] [address] AND [facility] Urinalysis screen and microscopy, with reflex to culture (02/18/2018 11:00 PM) Specimen site Clean catch [facility] DEPARTMENT OF PATHOLOGY AND GENOMIC MEDICINE Color, UA Yellow [facility] DEPARTMENT OF PATHOLOGY AND GENOMIC MEDICINE Appearance, UA Clear [facility] DEPARTMENT OF PATHOLOGY AND GENOMIC MEDICINE Specific gravity, UA 1.018 1.001 - 1.030 [facility] DEPARTMENT OF PATHOLOGY AND GENOMIC MEDICINE pH, UA 6.0 5.0 - 9.0 [facility] DEPARTMENT OF PATHOLOGY AND GENOMIC MEDICINE Protein, UA Negative Negative [facility] DEPARTMENT OF PATHOLOGY AND GENOMIC MEDICINE Glucose, UA Negative Negative [facility] DEPARTMENT OF PATHOLOGY AND GENOMIC MEDICINE Ketones, UA Negative Negative [facility] DEPARTMENT OF PATHOLOGY AND GENOMIC MEDICINE Bilirubin, UA Negative Negative [facility] DEPARTMENT OF PATHOLOGY AND GENOMIC MEDICINE Blood, UA Negative Negative [facility] DEPARTMENT OF PATHOLOGY AND GENOMIC MEDICINE Nitrite, UA Negative Negative [facility] DEPARTMENT OF PATHOLOGY AND GENOMIC MEDICINE Urobilinogen, UA 2.0 (A) <2.0 E.U./dL [facility] DEPARTMENT OF PATHOLOGY AND GENOMIC MEDICINE Leukocyte esterase, UA Negative Negative [facility] DEPARTMENT OF PATHOLOGY AND GENOMIC MEDICINE Epithelial cells, UA <1 /HPF [facility] DEPARTMENT OF PATHOLOGY AND GENOMIC MEDICINE Round epithelial cells, UA <1 0 - 5 /HPF [facility] DEPARTMENT OF PATHOLOGY AND GENOMIC MEDICINE WBC, UA 1 0 - 1 /HPF [facility] DEPARTMENT OF PATHOLOGY AND GENOMIC MEDICINE RBC, UA 1 0 - 5 /HPF [facility] DEPARTMENT OF PATHOLOGY AND GENOMIC MEDICINE Bacteria, UA None seen None seen [facility] DEPARTMENT OF PATHOLOGY AND GENOMIC MEDICINE Yeast, UA None seen [facility] DEPARTMENT OF PATHOLOGY AND GENOMIC MEDICINE Yeast with pseudohyphae, UA None seen [facility] DEPARTMENT OF PATHOLOGY AND GENOMIC MEDICINE Specimen Urine Performing Organization Address City/[facility] Phone Number [facility] DEPARTMENT OF PATHOLOGY [address] [place] [id number] AND [employer] [facility] Urine drugs of abuse screen (02/18/2018 11:00 PM) Amphetamine screen, urine Negative [facility] DEPARTMENT OF PATHOLOGY AND GENOMIC MEDICINE Barbiturate screen, urine Negative [facility] DEPARTMENT OF PATHOLOGY AND GENOMIC MEDICINE Benzodiazepine screen, Positive (A) [facility] DEPARTMENT OF urine PATHOLOGY AND GENOMIC MEDICINE Cannabinoid screen, urine Negative [facility] DEPARTMENT OF PATHOLOGY AND GENOMIC MEDICINE Cocaine screen, urine Negative [facility] DEPARTMENT OF PATHOLOGY AND GENOMIC MEDICINE Methadone metabolite Negative [facility] DEPARTMENT OF (EDDP), urine PATHOLOGY AND GENOMIC MEDICINE Opiates screen, urine Negative [facility] DEPARTMENT OF PATHOLOGY AND GENOMIC MEDICINE Phencyclidine screen, urine Negative [facility] DEPARTMENT OF PATHOLOGY AND GENOMIC MEDICINE Tricyclic screen, urine Positive (A) [facility] DEPARTMENT OF Comment: PATHOLOGY AND GENOMIC Drug screen minimum concentration of detectability MEDICINE Qkdsvjaiqadf1592 ng/mL Barbiturates 200 ng/mL Axwiraiigfzmwov201 ng/mL Ixtculd964 ng/mL Mldjuxbeh393 ng/mL Dwhwcnt638 ng/mL Phencyclidine 25 ng/mL Dxuyngazqlzi45 ng/mL Pyquetkaqc9658 ng/mL Negative test results indicates presumptive evidence of lack of clinically significant drug concentration in this urine specimen. Positive test results are presumptive evidence of clinically significant drug concentration in this urine specimen. Testing performed for medical purposes only. Specimen Urine Performing Organization Address City/State/Zipcode Phone Number [facility] DEPARTMENT OF PATHOLOGY [address] [place] [address] AND [employer] [facility] Urine culture (02/18/2018 11:00 PM) Urine culture SEE COMMENTComment: Bacteriuria [facility] DEPARTMENT OF PATHOLOGY screen negative. AND [employer] MEDICINE Performing Organization Address City/State/Zipcode Phone Number [facility] DEPARTMENT OF PATHOLOGY [address] [place] [address] AND [employer] [facility] CT Head Wo Contrast (02/18/2018 8:16 [...] are clear. IMPRESSION: No acute intracranial abnormalities. [facility]-[id number] Procedure Note Hm Interface, Radiology Results Incoming [...] are clear. IMPRESSION: No acute intracranial abnormalities. [facility]-[id number] Performing Organization Address City/[facility]/Zipcode Phone Number [facility] [address] [place] [address] Thyroid stimulating hormone (02/18/2018 7:35 PM) TSH 1.87 0.27 - 4.20 uIU/mL [facility] DEPARTMENT OF PATHOLOGY AND [facility] MEDICINE Specimen Plasma specimen Performing Organization Address [facility] Phone Number [facility] DEPARTMENT OF PATHOLOGY [address] [place] [address]. [place] [address] AND [facility] T4, free (02/18/2018 7:35 PM) T4, free 1.1 0.9 - 1.7 ng/dL [facility] DEPARTMENT OF PATHOLOGY AND [employer] MEDICINE Specimen Plasma specimen Performing Organization Address [facility] Phone Number [facility] DEPARTMENT OF PATHOLOGY [address] [place] [address]. [place] [address] AND [facility] B natriuretic peptide (02/18/2018 7:35 PM) BNP 10 0 - 100 pg/mL [facility] DEPARTMENT OF PATHOLOGY AND [employer] MEDICINE Specimen Blood Performing Organization Address [facility] Phone Number [facility] DEPARTMENT OF PATHOLOGY [address] [place] [address]. [place] [address] AND [facility] Creatine kinase, total (CPK) (02/18/2018 7:35 PM) Creatine kinase 41 39 - 308 U/L [facility] DEPARTMENT OF PATHOLOGY AND [employer] MEDICINE Specimen Plasma specimen Performing Organization Address [facility] Phone Number [facility] DEPARTMENT OF PATHOLOGY [address] [place] [address]. [place] [address] AND [facility] Alcohol level, blood (02/18/2018 7:35 PM) Alcohol None Detected mg/dL [facility] DEPARTMENT OF PATHOLOGY Comment: AND GENOMIC MEDICINE Normal None Detected Legal Intoxication in [place]80 mg/dL (0.08%) - Whole Blood Toxic Aerxhuqecwigo267 mg/dL (0.2%) Potentially Cptey916 - 500 mg/dL (0.35 - 0.5%) Alcohol percent None Detected % [facility] DEPARTMENT OF PATHOLOGY AND GENOMIC MEDICINE Specimen Plasma specimen Performing Organization Address City/[facility] Phone Number [facility] DEPARTMENT OF PATHOLOGY [address] [place] [address] AND [facility] Acetaminophen level (02/18/2018 7:35 PM) Acetaminophen level <8.3 10.0 - 30.0 ug/mL [facility] DEPARTMENT OF Comment: PATHOLOGY AND GENOMIC Therapeutic 10-30 ug/mL MEDICINE Possible Toxicity 150-200 ug/mL Probable Toxicity >200 ug/mL Specimen Plasma specimen Performing Organization Address City/State/Zipcode Phone Number [facility] DEPARTMENT OF PATHOLOGY [address] [place] [address] AND [facility] Salicylate level (02/18/2018 7:35 PM) Salicylate <0.4 (L) 3.0 - 30.0 mg/dL [facility] DEPARTMENT OF PATHOLOGY AND GENOMIC MEDICINE Specimen Plasma specimen Performing Organization Address City/[facility] Phone Number [facility] DEPARTMENT OF PATHOLOGY [address] [place] [address] AND [facility] Comprehensive metabolic panel (02/18/2018 7:35 PM) Sodium 140 135 - 148 mEq/L [facility] DEPARTMENT OF PATHOLOGY AND GENOMIC MEDICINE Potassium 4.3 3.5 - 5.0 mEq/L [facility] DEPARTMENT OF PATHOLOGY AND GENOMIC MEDICINE Chloride 103 98 - 112 mEq/L [facility] DEPARTMENT OF PATHOLOGY AND GENOMIC MEDICINE CO2 26 24 - 31 mEq/L [facility] DEPARTMENT OF PATHOLOGY AND GENOMIC MEDICINE Anion gap 11@ANIO 7 - 15 mEq/L [facility] DEPARTMENT OF PATHOLOGY AND GENOMIC MEDICINE BUN 15 8 - 23 mg/dL [facility] DEPARTMENT OF PATHOLOGY AND GENOMIC MEDICINE Creatinine 1.0 0.7 - 1.2 mg/dL [facility] DEPARTMENT OF PATHOLOGY AND GENOMIC MEDICINE Glucose 141 (H) 65 - 99 mg/dL [facility] DEPARTMENT OF PATHOLOGY AND GENOMIC MEDICINE Calcium 9.8 8.8 - 10.2 mg/dL [facility] DEPARTMENT OF PATHOLOGY AND GENOMIC MEDICINE Protein 7.2 6.3 - 8.3 g/dL [facility] DEPARTMENT OF PATHOLOGY AND GENOMIC MEDICINE Albumin 4.2 3.5 - 5.0 g/dL [facility] DEPARTMENT OF PATHOLOGY AND GENOMIC MEDICINE A/G ratio 1.4 0.7 - 3.8 [facility] DEPARTMENT OF PATHOLOGY AND GENOMIC MEDICINE Alkaline phosphatase 131 (H) 40 - 129 U/L [facility] DEPARTMENT OF PATHOLOGY AND GENOMIC MEDICINE AST 15 10 - 50 U/L [facility] DEPARTMENT OF PATHOLOGY AND GENOMIC MEDICINE ALT 8 5 - 50 U/L [facility] DEPARTMENT OF PATHOLOGY AND GENOMIC MEDICINE Total bilirubin 0.3 0.2 - 1.2 mg/dL [facility] DEPARTMENT OF PATHOLOGY AND GENOMIC MEDICINE Specimen Plasma specimen Performing Organization Address City/[facility] Phone Number [facility] DEPARTMENT OF PATHOLOGY [address] [place] [address] AND GENOMIC MEDICINE XR Chest 1 Vw Portable (02/18/2018 7:30 PM) Narrative Performed At EXAMINATION:XR [facility]ST [facility] CLINICAL H[facility]ORY:SHORTNESS OF BREATH COMPARISON:No priors IMPRESSION: Prominent scoliosis. Heart and mediastinum somewhat distorted. Bones are osteopenic. No definite consolidations are seen. [facility]-[id number] Procedure Note Hm Interface, Radiology Results Incoming - 02/18/2018 7:40 PM CDT EXAMINATION: XR CHEST 1 VW PORTABLE CLINICAL HISTORY: SHORTNESS OF BREATH COMPARISON: No priors IMPRESSION: Prominent scoliosis. Heart and mediastinum somewhat distorted. Bones are osteopenic. No definite consolidations are seen. [facility]-[id number] Performing Organization Address [facility] Phone Number [facility] [address] [place] [address] ECG ED Preliminary Interpretation - NOT AN ORDER (02/18/2018 7:08 PM)Only the most recent of2 resultswithin the time period is included. Narrative Performed At [facility] 02/19/20184:12 AM ECG ED Preliminary Interpretation - Not an Order Performed by: REGINO CULLEN Authorized by: HEMA ZACARIAS ECG reviewed by ED Physician in the absence of a haul cane brakeman: yes Previous ECG: Previous ECG:Unavailable Interpretation: Interpretation: normal Rate: ECG rate:77 ECG rate assessment: normal Rhythm: Rhythm: sinus rhythm Ectopy: Ectopy: none QRS: QRS intervals:Normal Conduction: Conduction: normal ST segments: ST segments:Normal T waves: T waves: normal after 05/26/2017 Insurance Payer Benefit Plan / Group Subscriber ID Type Phone Address BCBS BCBS PAR/TRAD PLAN xxxxxxxxxxxx Indemnity MEDICARE MEDICARE PART A AND B xxxxxxxxxx Medicare [facility] CHOICE/CHOICE + xxxxxxxxx HMO/PPO Home: [address] [place], [place] [phone] [place], [place] [address]
--- NOTE | 2018-05-27 18:35 | RAD REPORT ---
EXAM DESCRIPTION: RAD - Sacrum And Coccyx - 05/27/2018 6:20 pm CLINICAL HISTORY: PAIN Trauma COMPARISON: 11/18/2015 FINDINGS: The bones are osteopenic. No acute fracture is identified. Prominent stool is present in t he rectum.
--- NOTE | 2018-05-27 18:53 | ER ---
Nurse's Notes [facility] Name: oCrey Mcadams Age: 67 yrs Sex: Male : 1950 Arrival Date: 05/27/2018 Time: 16:43 Bed 14 Private MD: Diagnosis: Contusion of lower back and pelvis-contusion of sacrum Presentation: 05/27 16:43 Presenting complaint: EMS states: Low back pain after mechanical fall from standing hb yesterday. Daughter on scene reported pt was attempting to sit back in chair and missed, landing on buttocks. Pt denies fall. Transition of care: patient was not received from another setting of care. Onset of symptoms was May 26, 2018. Risk Assessment: Do you want to hurt yourself or someone else? Patient reports no desire to harm self or others. Care prior to arrival: None. 16:43 Method Of Arrival: EMS: [facility] 16:43 Acuity: CHERRY 4 hb 19:56 Initial Sepsis Screen: Does the patient meet any 2 criteria? No. Patient's initial bs1 sepsis screen is negative. Does the patient have a suspected source of infection? No. Patient's initial sepsis screen is negative. Historical: - Allergies: 16:50 budesonide; hb - Home Meds: 16:50 B-6 100 mg one tab daily [Active]; trazodone 100 mg Oral tab 2 tabs nightly [Active]; hb Cymbalta 20 mg oral cpDR 1 cap nightly [Active]; baclofen 10 mg Oral tab 1 tab 3 times per day [Active]; Depakote 500 mg Oral TbEC 1 tab 2 times per day [Active]; gabapentin 300 mg oral cap daily [Active]; lithium carbonate 600 mg Oral cap twice a day [Active]; Risperdal 2 mg Oral tab 1 tab 2 times per day [Active]; Zoloft 100 mg Oral tab 2 tabs once daily [Active]; - PMHx: 16:50 Anxiety; Bipolar disorder; Depression; COPD; scoliosis; hb - Immunization history:: Adult Immunizations up to date. - Social history:: Smoking status: Patient/guardian denies using tobacco. - Ebola Screening: : No symptoms or risks identified at this time. Screenin:55 Abuse screen: Denies threats or abuse. Denies injuries from another. Nutritional hb screening: No deficits noted. Tuberculosis screening: No symptoms or risk factors identified. Fall Risk Total Peter Fall Scale indicates High Risk Score (45 or more points). Fall prevention measures have been instituted. Side Rails Up X 2 Frequent Obs/Assessments Occuring As available patient and family educated on Fall Prevention Program and Strategies. Assessment: 17:07 General: Appears in no apparent distress. Behavior is calm, cooperative. Pain: Pain hb currently is 8 out of 10 on a pain scale. Neuro: Level of Consciousness is awake, alert, obeys commands, Oriented to person, place, situation. Cardiovascular: Capillary refill < 3 seconds Patient's skin is warm and dry. Respiratory: Airway is patent Trachea midline Respiratory effort is even, unlabored, Respiratory pattern is regular, symmetrical, Breath sounds are clear bilaterally. GI: No signs and/or symptoms were reported involving the gastrointestinal system. : No signs and/or symptoms were reported regarding the genitourinary system. EENT: No signs and/or symptoms were reported regarding the EENT system. Derm: Skin is intact, is healthy with good turgor. Musculoskeletal: Reports pain in low back. 18:01 Reassessment: Patient appears in no apparent distress at this time. No changes from hb previously documented assessment. Patient and/or family updated on plan of care and expected duration. Pain level reassessed. Patient is alert, oriented x 3, equal unlabored respirations, skin warm/dry/pink. 18:37 Reassessment: Patient appears in no apparent distress at this time. No changes from hb previously documented assessment. Patient and/or family updated on plan of care and expected duration. Pain level reassessed. Patient is alert, oriented x 3, equal unlabored respirations, skin warm/dry/pink. 19:05 Reassessment: Patient appears in no apparent distress at this time. Patient and/or bs1 family updated on plan of care and expected duration. Pain level reassessed. Patient is alert, oriented x 3, equal unlabored respirations, skin warm/dry/pink. Report received from YEVGENIY Lauren. Ambulated patient down hallway, tolerated well. Patient denies pain at this time. 19:09 Reassessment: Ambulated in hallway with assistance. Daughter notified pt ready to be hb picked up. 19:59 Reassessment: Informed patient and family of discharge instructions. bs1 Vital Signs: 16:45 BP 123 / 83; Pulse 81; Resp 17; Temp 98.3; Pulse Ox 96% on R/A; Pain 8/10; hb 18:00 BP 126 / 77; Pulse 78; Resp 14; Pulse Ox 100% on R/A; hb 19:00 BP 136 / 78; Pulse 77; Pulse Ox 99% on R/A; bs1 19:30 BP 162 / 93; Pulse 81; Resp 16; Temp 97.9(O); Pulse Ox 100% on R/A; Pain 0/10; bs1 ED Course: 16:43 Patient arrived in ED. hb 16:45 Triage completed. hb 16:45 Arm band placed on right wrist. hb 16:47 Filipe Gonzalez NP is PHCP. pm1 16:47 Chris Monet MD is Attending Physician. pm1 17:00 Cleaned of incontinence. Linen changed. hb 17:07 Patient has correct armband on for positive identification. Placed in gown. Bed in low hb position. Call light in reach. Side rails up X2. Warm blanket given. 18:00 Xin Jaramillo, RN is Primary Nurse. hb 18:21 Sacrum And Coccyx XRAY In Process Unspecified. EDMS 18:34 Cleaned of incontinence. Linen changed. hb 19:56 No provider procedures requiring assistance completed. Patient did not have IV access bs1 during this emergency room visit. Administered Medications: No medications were administered Outcome: 18:52 Discharge ordered by MD. pm1 19:56 Discharged to home via wheelchair, with family. bs1 19:56 Condition: stable 19:56 Discharge instructions given to patient, family, Instructed on discharge instructions, follow up and referral plans. Demonstrated understanding of instructions, follow-up care. 20:00 Patient left the ED. bs1 Signatures: Dispatcher [employer] EDMS Filipe Gonzalez NP SET OFF PRESS OPERATOR pm1 Xin Jaramillo, RN RN Martha Hurtado RN RN bs1
--- NOTE | 2018-05-27 18:53 | EDPHYS ---
Physician Documentation [facility] Name: Corey Mcadams Age: 67 yrs Sex: Male : 1950 Arrival Date: 05/27/2018 Time: 16:43 Bed 14 Private MD: ED Physician Chris Monet HPI: 05/27 17:30 This 67 yrs old Male presents to ER via EMS with complaints of Tailbone pain. pm1 17:30 The patient presents with pain that is acute. The symptoms are located in the coccyx pm1 area. Onset: The symptoms/episode began/occurred yesterday. The pain does not radiate. Associated signs and symptoms: Pertinent negatives: chest pain, dysuria, fever, nausea, numbness, tingling, vomiting, weakness. The problem was sustained during a fall, Patient was trying to sit down on his recliner and missed landing on his buttocks. Presenting with tailbone pain. The patient has not experienced similar symptoms in the past. Historical: - Allergies: 16:50 budesonide; hb - Home Meds: 16:50 B-6 100 mg one tab daily [Active]; trazodone 100 mg Oral tab 2 tabs nightly [Active]; hb Cymbalta 20 mg oral cpDR 1 cap nightly [Active]; baclofen 10 mg Oral tab 1 tab 3 times per day [Active]; Depakote 500 mg Oral TbEC 1 tab 2 times per day [Active]; gabapentin 300 mg oral cap daily [Active]; lithium carbonate 600 mg Oral cap twice a day [Active]; Risperdal 2 mg Oral tab 1 tab 2 times per day [Active]; Zoloft 100 mg Oral tab 2 tabs once daily [Active]; - PMHx: 16:50 Anxiety; Bipolar disorder; Depression; COPD; scoliosis; hb - Immunization history:: Adult Immunizations up to date. - Social history:: Smoking status: Patient/guardian denies using tobacco. - Ebola Screening: : No symptoms or risks identified at this time. ROS: 17:30 Constitutional: Negative for fever, chills, and weight loss, Eyes: Negative for injury, pm1 pain, redness, and discharge, ENT: Negative for injury, pain, and discharge, Neck: Negative for injury, pain, and swelling, Cardiovascular: Negative for chest pain, palpitations, and edema, Respiratory: Negative for shortness of breath, cough, wheezing, and pleuritic chest pain, Abdomen/GI: Negative for abdominal pain, nausea, vomiting, diarrhea, and constipation. 17:30 MS/Extremity: Negative for injury and deformity, Skin: Negative for injury, rash, and discoloration. 17:30 Neuro: Negative for headache, weakness, numbness, tingling, and seizure. 17:30 Back: Positive for of the sacrum, pain. Exam: 17:30 Constitutional: This is a well developed, well nourished patient who is awake, alert, pm1 and in no acute distress. Head/Face: Normocephalic, atraumatic. Neck: Trachea midline, no thyromegaly or masses palpated, and no cervical lymphadenopathy. Supple, full range of motion without nuchal rigidity, or vertebral point tenderness. No Meningismus. Chest/axilla: Normal chest wall appearance and motion. Nontender with no deformity. No lesions are appreciated. Cardiovascular: Regular rate and rhythm with a normal S1 and S2. No gallops, murmurs, or rubs. Normal PMI, no JVD. No pulse deficits. Respiratory: Lungs have equal breath sounds bilaterally, clear to auscultation and percussion. No rales, rhonchi or wheezes noted. No increased work of breathing, no retractions or nasal flaring. Abdomen/GI: Soft, non-tender, with normal bowel sounds. No distension or tympany. No guarding or rebound. No evidence of tenderness throughout. 17:30 Skin: Warm, dry with normal turgor. Normal color with no rashes, no lesions, and no evidence of cellulitis. MS/ Extremity: Pulses equal, no cyanosis. Neurovascular intact. Full, normal range of motion. 17:30 Back: vertebral tenderness, is appreciated at sacrum. 17:30 Neuro: Orientation: is normal, Motor: moves all fours, Sensation: is normal, no obvious gross deficits. Vital Signs: 16:45 BP 123 / 83; Pulse 81; Resp 17; Temp 98.3; Pulse Ox 96% on R/A; Pain 8/10; hb 18:00 BP 126 / 77; Pulse 78; Resp 14; Pulse Ox 100% on R/A; hb 19:00 BP 136 / 78; Pulse 77; Pulse Ox 99% on R/A; bs1 19:30 BP 162 / 93; Pulse 81; Resp 16; Temp 97.9(O); Pulse Ox 100% on R/A; Pain 0/10; bs1 MDM: 16:47 Patient medically screened. [facility] 18:50 Data reviewed: vital signs. Data interpreted: Pulse oximetry: on room air is 100 %. pm1 Interpretation: normal. Counseling: I had a detailed discussion with the patient and/or guardian regarding: the historical points, exam findings, and any diagnostic results supporting the discharge/admit diagnosis, radiology results, the need for outpatient follow up, to return to the emergency department if symptoms worsen or persist or if there are any questions or concerns that arise at home. 05/27 16:52 Order name: Sacrum And Coccyx XRAY; Complete Time: 18:50 pm1 Administered Medications: No medications were administered Disposition: 05/28 06:57 Co-signature as Attending Physician, Chris Monet MD I agree with the assessment and [facility] plan of care. Disposition: 05/27/18 18:52 Discharged to Home. Impression: Contusion of lower back and pelvis - contusion of sacrum. - Condition is Stable. - Discharge Instructions: Contusion, Tailbone Injury. - Medication Reconciliation Form, Thank You Letter form. - Follow up: Emergency Department; When: As needed; Reason: Worsening of condition. Follow up: Private Physician; When: 2 - 3 days; Reason: Recheck today's complaints, Continuance of care, Re-evaluation by your physician. - Problem is new. - Symptoms have improved. Signatures: Dispatcher [employer] EDPA Chris Monet MD MD cha Marinas, Patrick, TELEPHONE CLERKS SUPERVISOR TELEPHONE CLERKS SUPERVISOR pm1 Xin Jaramillo, RN RN Martha Solomon RN RN bs1 Corrections: (The following items were deleted from the chart) 05/27 20:00 18:52 05/27/2018 18:52 Discharged to Home. Impression: Contusion of lower back and bs1 pelvis - contusion of sacrum. Condition is Stable. Forms are Medication Reconciliation Form, Thank You Letter, Antibiotic Education, Prescription Opioid Use. Follow up: Emergency Department; When: As needed; Reason: Worsening of condition. Follow up: Private Physician; When: 2 - 3 days; Reason: Recheck today's complaints, Continuance of care, Re-evaluation by your physician. Problem is new. Symptoms have improved. pm1
== END 2018-05-27 20:00 | disposition home or self-care (01) ==
LOC: ER 16:39
DX: S30.0XXA Contusion of lower back and pelvis, initial encounter (principal); W01.198A Fall on same level from slipping, tripping and stumbling with subsequent striking against other object, initial encounter; Y93.89 Activity, other specified; Y92.019 Unspecified place in single-family (private) house as the place of occurrence of the external cause; Z88.8 Allergy status to other drugs, medicaments and biological substances; J44.9 Chronic obstructive pulmonary disease, unspecified; M41.9 Scoliosis, unspecified
CPT/HCPCS: 72220; 99284

== ENCOUNTER 2018-08-27 03:25 | Emergency (ER) | payer OTHER, BC ==
[2018-08-27] MEDS ORDERED: DOPAMINE 400 MG/250ML D5W PREMIX IV ONE (03:26)
[2018-08-27] MEDS ORDERED: MAGNESIUM SULF 1GM/2ML VIAL IM ONE (03:26)
[2018-08-27] MEDS ORDERED: LIDOCAINE 100 MG/5 ML SYRINGE IV ONE (03:26)
--- OUTSIDE RECORDS SUMMARY | 2018-08-27 03:27 | XMS REPORT | Clinical Summary ---
:1950 Author Organization [facility] Address [address] [place] [address] Care Team Providers Name Role Phone Asked, No Pcp Primary Care Provider Unavailable Allergies No Known Allergies Medications Medication Sig Dispensed Refills Start End Status Date Date clonAZEPAM [...] 300 MG capsule Take 300 mg by 0 Active mouth 2 (two) times a day with meals. gabapentin (NEURONTIN) Take 300 mg by 0 Active 300 mg capsule mouth daily. QUEtiapine XR Take 400 mg by 0 Active (SEROquel XR) 400 MG mouth nightly. 24 hr tablet 2 TABLET mirtazapine (REMERON) Take 15 mg by 0 Active 15 MG tablet mouth nightly. diphenhydrAMINE Take 25 mg by 0 Active (BENADRYL) 25 mg mouth nightly tablet as needed for sleep. fentaNYL (DURAGESIC) Place 1 patch 0 Discontinued on the skin 018 every third [...] recurrent major depressive disorder (Primary Dx) after 08/26/2017 Family History Medical History Relation Name Comments Cancer Brother Diabetes Brother Heart disease Father Cancer Mother Diabetes Mother Relation Name Status Comments Brother Father Mother Social History Tobacco Use Types Packs/Day Years Used Date Heavy Tobacco Smoker Started: 04/22/1964 Smokeless Tobacco: Current User Alcohol Use Drinks/Week oz/Week Comments No Sex Assigned at Date Recorded Not on file Job Start Date Occupation Industry Not on file Not on file Not on file Travel History Travel Start Travel End No recent travel history available. Last Filed Vital Signs Vital Sign Reading [...] Comments COLON CANCER SCREENING 1999 SHINGRIX VACCINE (1 of 2) 1999 ZOSTER VACCINE 2009 PNEUMOCOCCAL POLYSACCHARIDE VACCINE AGE 65 AND OVER 2014 PNEUMOCOCCAL-13 2014 INFLUENZA VACCINE 05/02/2018 Procedures Procedure Name Priority Date/Time Associated Comments Diagnosis ZZESTIMATED GFR Routine 02/21/2018 5:10 Results for this [...] CDT procedure are in the results section. ZZESTIMATED GFR Routine 02/20/2018 3:34 Results for this [...] CDT procedure are in the results section. ZZESTIMATED GFR STAT 02/18/2018 7:35 Results for this [...] 08/31/2017 3:50 Results for this INTERPRETATION PM [employer] procedure are in the results section. after 08/26/2017 Results Estimated GFR (02/21/2018 5:10 AM CDT)Only the most recent of3 resultswithin the time period is included. GFR Non Af Amer 84 mL/min/1.73 m2 [facility] DEPARTMENT OF PATHOLOGY AND GENOMIC MEDICINE GFR Af Amer >90 mL/min/1.73 m2 [facility] DEPARTMENT OF Comment: PATHOLOGY AND GENOMIC [...] specimen Performing Organization Address City/State/Zipcode Phone Number [facility] DEPARTMENT OF PATHOLOGY [address] [place] [address] AND [facility] CBC with platelet and differential (02/21/2018 5:10 AM CDT)Only the most recent of3 resultswithin the time period is included. WBC 22.9 (H) 4.5 - 11.0 k/uL [facility] DEPARTMENT OF PATHOLOGY AND GENOMIC MEDICINE RBC 4.25 (L) 4.40 - 6.00 m/uL [facility] DEPARTMENT OF PATHOLOGY AND GENOMIC MEDICINE HGB 13.5 (L) 14.0 - 18.0 g/dL [facility] DEPARTMENT OF PATHOLOGY AND GENOMIC MEDICINE HCT 41.3 41.0 - 51.0 % [facility] DEPARTMENT OF PATHOLOGY AND GENOMIC MEDICINE MCV 97.2 82.0 - 100.0 fL [facility] DEPARTMENT OF PATHOLOGY AND GENOMIC MEDICINE MCH 31.8 27.0 - 34.0 pg [facility] DEPARTMENT OF PATHOLOGY AND GENOMIC MEDICINE MCHC 32.7 31.0 - 37.0 g/dL [facility] DEPARTMENT OF PATHOLOGY AND GENOMIC MEDICINE RDW - SD 57.6 (H) 37.0 - 55.0 fL [facility] DEPARTMENT OF PATHOLOGY AND GENOMIC MEDICINE MPV 9.8 6.9 - 11.0 fL [facility] DEPARTMENT OF PATHOLOGY AND GENOMIC MEDICINE Platelet count 348 150 - 400 K/uL [facility] DEPARTMENT OF PATHOLOGY AND GENOMIC MEDICINE Nucleated RBC 0.00 /100 WBC [facility] DEPARTMENT OF PATHOLOGY AND GENOMIC MEDICINE Neutrophils 94.2 (H) 39.0 - 69.0 % [facility] DEPARTMENT OF PATHOLOGY AND GENOMIC MEDICINE Lymphocytes 2.3 (L) 25.0 - 45.0 % [facility] DEPARTMENT OF PATHOLOGY AND GENOMIC MEDICINE Monocytes 2.8 0.0 - 10.0 % [facility] DEPARTMENT OF PATHOLOGY AND GENOMIC MEDICINE Eosinophils 0.0 0.0 - 5.0 % [facility] DEPARTMENT OF PATHOLOGY AND GENOMIC MEDICINE Basophils 0.1 0.0 - 1.0 % [facility] DEPARTMENT OF PATHOLOGY AND GENOMIC MEDICINE Immature granulocytes 0.6 0.0 - 1.0 % [facility] DEPARTMENT OF PATHOLOGY AND GENOMIC MEDICINE Specimen Blood Performing Organization Address City/[facility] Cent[facility] Phone Number [facility] DEPARTMENT OF PATHOLOGY [address] [place] [address] [facility] Basic metabolic panel (02/21/2018 5:10 AM CDT)Only the most recent of2 resultswithin the time period is included. Sodium 140 135 - 148 mEq/L [facility] DEPARTMENT OF PATHOLOGY AND GENOMIC MEDICINE Potassium 4.4 3.5 - 5.0 mEq/L [facility] DEPARTMENT OF PATHOLOGY AND GENOMIC MEDICINE Chloride 106 98 - 112 mEq/L [facility] DEPARTMENT OF PATHOLOGY AND GENOMIC MEDICINE CO2 21 (L) 24 - 31 mEq/L [facility] DEPARTMENT OF PATHOLOGY AND GENOMIC MEDICINE Anion gap 13@ANIO 7 - 15 mEq/L [facility] DEPARTMENT OF PATHOLOGY AND GENOMIC MEDICINE BUN 24 (H) 8 - 23 mg/dL [facility] DEPARTMENT OF PATHOLOGY AND GENOMIC MEDICINE Creatinine 0.9 0.7 - 1.2 mg/dL [facility] DEPARTMENT OF PATHOLOGY AND GENOMIC MEDICINE Glucose 127 (H) 65 - 99 mg/dL [facility] DEPARTMENT OF PATHOLOGY AND GENOMIC MEDICINE Calcium 9.6 8.8 - 10.2 mg/dL [facility] DEPARTMENT OF PATHOLOGY AND GENOMIC MEDICINE Specimen Plasma specimen Performing Organization Address City/[facility] Cent[facility]ode Phone Number [facility] PATHOLOGY [address] [place] [address] [employer] ECG 12 lead (02/20/2018 8:32 AM CDT)Only the most recent of4 resultswithin the time period is included. Ventricular rate 92 [facility]USE Atrial rate 92 [facility] CO interval 162 [facility] QRSD interval 96 [...] wave abnormality no longer evident in Lateral [facility] MUSE leads-Electronically Signed By Alex Beth ([id number]) on 2017 10:37:12 AM Performing Organization Address City/State/Zipcode Phone Number [facility] MUSE [address] [place] [address] Phosphorus level (02/20/2018 3:34 AM CDT) Phosphorus 3.5 2.4 - 4.5 mg/dL [facility] DEPARTMENT OF PATHOLOGY AND GENOMIC MEDICINE Specimen Plasma specimen Performing Organization Address City/[facility] Centercode Phone Number [facility] DEPARTMENT OF PATHOLOGY [address] [place] [address] AND [place] Magnesium level (02/20/2018 3:34 AM CDT) Magnesium 2.1 1.6 - 2.4 mg/dL [facility] DEPARTMENT OF PATHOLOGY AND GENOMIC MEDICINE Specimen Plasma specimen Performing Organization Address [facility] Centercode Phone Number [facility] DEPARTMENT OF PATHOLOGY [address] [place] [address] AND [place] Ionized calcium (02/20/2018 3:34 AM CDT) pH 7.42 [facility] DEPARTMENT OF PATHOLOGY AND GENOMIC MEDICINE Ionized calcium 1.19 1.11 - 1.32 mmol/L [facility] DEPARTMENT OF PATHOLOGY AND GENOMIC MEDICINE Specimen Plasma specimen Performing Organization Address [facility] Centercode Phone Number [facility] DEPARTMENT OF PATHOLOGY [address] [place] [address] AND [place] Troponin (02/19/2018 9:53 AM CDT)Only the most recent of4 resultswithin the time period is included. Troponin <0.30 0.00 - 0.30 ng/mL [facility] DEPARTMENT OF PATHOLOGY Comment: AND GENOMIC MEDICINE 0.11 - 1.49 ng/mlMay indicate increased risk of acute coronary syndrome. >=1.5 ng/mlConsistent with acute myocardial infarction. The diagnostic value of a single normal or non-diagnostic result is questionable.Serial samples at 2-6 hour intervals are required to rule out acute myocardial injury. Specimen Plasma specimen Performing Organization Address City/[facility]/Zipcode Phone Number [facility] DEPARTMENT OF PATHOLOGY [address] [place] [address] AND [facility] POC glucose (02/19/2018 8:15 AM CDT)Only the most recent of4 resultswithin the time period is included. POC glucose 158 (H) 65 - 99 mg/dL [facility] DEPARTMENT OF PATHOLOGY AND Comment: GENOMIC MEDICINE RN Notified Meter ID: [id number] Needle Straightener: Shellie Nieto Performing Organization Address [facility] Centercode Phone Number [facility] DEPARTMENT OF PATHOLOGY [id number] [place] [id number] AND [facility] Urinalysis screen and microscopy, with reflex to culture (02/18/2018 11:00 PM CDT) Specimen site Clean catch [facility] DEPARTMENT OF PATHOLOGY AND GENOMIC MEDICINE Color, UA Yellow [facility] DEPARTMENT OF PATHOLOGY AND GENOMIC MEDICINE Appearance, UA Clear [facility] DEPARTMENT OF PATHOLOGY AND GENOMIC MEDICINE Specific gravity, UA 1.018 1.001 - 1.030 [facility] DEPARTMENT OF PATHOLOGY AND GENOMIC MEDICINE pH, UA 6.0 5.0 - 9.0 [facility] DEPARTMENT OF PATHOLOGY AND GENOMIC MEDICINE Protein, UA Negative Negative [facility] DEPARTMENT OF PATHOLOGY AND GENOMIC MEDICINE Glucose, UA Negative Negative [facility] DEPARTMENT OF PATHOLOGY AND GENOMIC MEDICINE Ketones, UA Negative Negative [facility] DEPARTMENT OF PATHOLOGY AND GENOMIC MEDICINE Bilirubin, UA Negative Negative [facility] DEPARTMENT OF PATHOLOGY AND GENOMIC MEDICINE Blood, UA Negative Negative [facility] DEPARTMENT OF PATHOLOGY AND GENOMIC MEDICINE Nitrite, UA Negative Negative [facility] DEPARTMENT OF PATHOLOGY AND GENOMIC MEDICINE Urobilinogen, UA 2.0 (A) <2.0 E.U./dL [facility] DEPARTMENT OF PATHOLOGY AND GENOMIC MEDICINE Leukocyte esterase, UA Negative Negative [facility] DEPARTMENT OF PATHOLOGY AND GENOMIC MEDICINE Epithelial cells, UA <1 /HPF [facility] DEPARTMENT OF PATHOLOGY AND GENOMIC MEDICINE Round epithelial cells, UA <1 0 - 5 /HPF [facility] DEPARTMENT OF PATHOLOGY AND GENOMIC MEDICINE WBC, UA 1 0 - 1 /HPF [facility] DEPARTMENT OF PATHOLOGY AND GENOMIC MEDICINE RBC, UA 1 0 - 5 /HPF [facility] DEPARTMENT OF PATHOLOGY AND GENOMIC MEDICINE Bacteria, UA None seen None seen [facility] DEPARTMENT OF PATHOLOGY AND GENOMIC MEDICINE Yeast, UA None seen [facility] DEPARTMENT OF PATHOLOGY AND GENOMIC MEDICINE Yeast with pseudohyphae, UA None seen [facility] DEPARTMENT OF PATHOLOGY AND GENOMIC MEDICINE Specimen Urine Performing Organization Address City/[facility]/Zipcode Phone Number [facility] DEPARTMENT OF PATHOLOGY [address] [place] [address] AND [place] Urine drugs of abuse screen (02/18/2018 11:00 PM CDT) Amphetamine screen, urine Negative [facility] DEPARTMENT OF PATHOLOGY AND GENOMIC MEDICINE Barbiturate screen, urine Negative [facility] DEPARTMENT OF PATHOLOGY AND GENOMIC MEDICINE Benzodiazepine screen, Positive (A) [facility] DEPARTMENT OF urine PATHOLOGY AND GENOMIC MEDICINE Cannabinoid screen, urine Negative [facility] DEPARTMENT OF PATHOLOGY AND GENOMIC MEDICINE Cocaine screen, urine Negative [facility] DEPARTMENT OF PATHOLOGY AND GENOMIC MEDICINE Methadone metabolite Negative [facility] DEPARTMENT OF (EDDP), urine PATHOLOGY AND GENOMIC MEDICINE Opiates screen, urine Negative [facility] DEPARTMENT OF PATHOLOGY AND GENOMIC MEDICINE Phencyclidine screen, urine Negative [facility] DEPARTMENT OF PATHOLOGY AND GENOMIC MEDICINE Tricyclic screen, urine Positive (A) [facility] DEPARTMENT OF Comment: PATHOLOGY AND GENOMIC Drug screen minimum concentration of detectability MEDICINE Bytoshwvzchd0361 ng/mL Barbiturates 200 ng/mL Lwezvqvqswhywds358 ng/mL Sninczq122 ng/mL Nuqyarlwc449 ng/mL Bwlgajj827 ng/mL Phencyclidine 25 ng/mL Jfzukuslkllz37 ng/mL Ebighnqgjc6299 ng/mL Negative test results indicates presumptive evidence of lack of clinically significant drug concentration in this urine specimen. Positive test results are presumptive evidence of clinically significant drug concentration in this urine specimen. Testing performed for medical purposes only. Specimen Urine Performing Organization Address [facility]ode Phone Number [facility] DEPARTMENT OF PATHOLOGY [address] [place] [address] AND [place] Urine culture (02/18/2018 11:00 PM CDT) Urine culture SEE COMMENTComment: Bacteriuria [facility] DEPARTMENT OF PATHOLOGY screen negative. AND GENOMIC MEDICINE Performing Organization Address [facility]/Zipcode Phone Number [facility] DEPARTMENT OF PATHOLOGY [id number] [place] [address] AND [place] CT Head Wo Contrast (02/18/2018 8:16 PM CDT) Narrative Performed At EXAMINATION:CT HEAD WO CONTRAST [...] are clear. IMPRESSION: No acute intracranial abnormalities. [facility]-[id number] Procedure Note Hm Interface, Radiology Results Incoming [...] are clear. IMPRESSION: No acute intracranial abnormalities. [facility]-[id number] Performing Organization Address [facility]/Zipcode Phone Number [facility] [address] [place] [address] Thyroid stimulating hormone (02/18/2018 7:35 PM CDT) TSH 1.87 0.27 - 4.20 uIU/mL [facility] DEPARTMENT OF PATHOLOGY AND [facility] Specimen Plasma specimen Performing Organization Address [facility]ercode Phone Number [facility] DEPARTMENT OF PATHOLOGY [address] [place] [address] AND [facility] T4, free (02/18/2018 7:35 PM CDT) T4, free 1.1 0.9 - 1.7 ng/dL [facility] DEPARTMENT OF PATHOLOGY AND GENOMIC MEDICINE Specimen Plasma specimen Performing Organization Address [facility] Phone Number [facility] DEPARTMENT OF PATHOLOGY [address] [place] [address] AND [facility] B natriuretic peptide (02/18/2018 7:35 PM CDT) BNP 10 0 - 100 pg/mL [facility] DEPARTMENT OF PATHOLOGY AND GENOMIC MEDICINE Specimen Blood Performing Organization Address [facility]ercode Phone Number [facility] DEPARTMENT OF PATHOLOGY [address] [place] [address] AND [facility] Creatine kinase, total (CPK) (02/18/2018 7:35 PM CDT) Creatine kinase 41 39 - 308 U/L [facility] DEPARTMENT OF PATHOLOGY AND GENOMIC MEDICINE Specimen Plasma specimen Performing Organization Address City/[facility]ercode Phone Number [facility] DEPARTMENT OF PATHOLOGY [address] [place] [address] AND [facility] Alcohol level, blood (02/18/2018 7:35 PM CDT) Alcohol None Detected mg/dL [facility] DEPARTMENT OF PATHOLOGY Comment: AND GENOMIC MEDICINE Normal None Detected Legal Intoxication in [place]80 mg/dL (0.08%) - Whole Blood Toxic Jormvgouzwozd405 mg/dL (0.2%) Potentially Qpgve729 - 500 mg/dL (0.35 - 0.5%) Alcohol percent None Detected % [facility] DEPARTMENT OF PATHOLOGY AND GENOMIC MEDICINE Specimen Plasma specimen Performing Organization Address [facility]ercodc Phone Number [facility] DEPARTMENT OF PATHOLOGY [address] [place] [address] AND [facility] Acetaminophen level (02/18/2018 7:35 PM CDT) Acetaminophen level <8.3 10.0 - 30.0 ug/mL [facility] DEPARTMENT OF Comment: PATHOLOGY AND GENOMIC Therapeutic 10-30 ug/mL MEDICINE Possible Toxicity 150-200 ug/mL Probable Toxicity >200 ug/mL Specimen Plasma specimen Performing Organization Address [facility]ercode Phone Number [facility] DEPARTMENT OF PATHOLOGY [address] [place] [address] AND [facility] Salicylate level (02/18/2018 7:35 PM CDT) Salicylate <0.4 (L) 3.0 - 30.0 mg/dL [facility] DEPARTMENT OF PATHOLOGY AND GENOMIC MEDICINE Specimen Plasma specimen Performing Organization Address [facility]ercode Phone Number [facility] DEPARTMENT OF PATHOLOGY [address] [place] [address] AND [facility] Comprehensive metabolic panel (02/18/2018 7:35 PM CDT) Sodium 140 135 - 148 mEq/L [facility] DEPARTMENT OF PATHOLOGY AND GENOMIC MEDICINE Potassium 4.3 3.5 - 5.0 mEq/L [facility] DEPARTMENT OF PATHOLOGY AND GENOMIC MEDICINE Chloride 103 98 - 112 mEq/L [facility] DEPARTMENT OF PATHOLOGY AND GENOMIC MEDICINE CO2 26 24 - 31 mEq/L [facility] DEPARTMENT OF PATHOLOGY AND GENOMIC MEDICINE Anion gap 11@ANIO 7 - 15 mEq/L [facility] DEPARTMENT OF PATHOLOGY AND GENOMIC MEDICINE BUN 15 8 - 23 mg/dL [facility] DEPARTMENT OF PATHOLOGY AND GENOMIC MEDICINE Creatinine 1.0 0.7 - 1.2 mg/dL [facility] DEPARTMENT OF PATHOLOGY AND GENOMIC MEDICINE Glucose 141 (H) 65 - 99 mg/dL [facility] DEPARTMENT OF PATHOLOGY AND GENOMIC MEDICINE Calcium 9.8 8.8 - 10.2 mg/dL [facility] DEPARTMENT OF PATHOLOGY AND GENOMIC MEDICINE Protein 7.2 6.3 - 8.3 g/dL [facility] DEPARTMENT OF PATHOLOGY AND GENOMIC MEDICINE Albumin 4.2 3.5 - 5.0 g/dL [facility] DEPARTMENT OF PATHOLOGY AND GENOMIC MEDICINE A/G ratio 1.4 0.7 - 3.8 [facility] DEPARTMENT OF PATHOLOGY AND GENOMIC MEDICINE Alkaline phosphatase 131 (H) 40 - 129 U/L [facility] DEPARTMENT OF PATHOLOGY AND GENOMIC MEDICINE AST 15 10 - 50 U/L [facility] DEPARTMENT OF PATHOLOGY AND GENOMIC MEDICINE ALT 8 5 - 50 U/L [facility] DEPARTMENT OF PATHOLOGY AND GENOMIC MEDICINE Total bilirubin 0.3 0.2 - 1.2 mg/dL [facility] DEPARTMENT OF PATHOLOGY AND GENOMIC MEDICINE Specimen Plasma specimen Performing Organization Address City/[facility]/Zipcode Phone Number [facility] DEPARTMENT OF PATHOLOGY [address] [place] [address] AND [facility] XR Chest 1 Vw Portable (02/18/2018 7:30 PM CDT) Narrative Performed At EXAMINATION:XR CHEST 1 VW PORTABLE RADIANT CLINICAL HISTORY:SHORTNESS OF BREATH COMPARISON:No priors IMPRESSION: Prominent scoliosis. Heart and mediastinum somewhat distorted. Bones are osteopenic. No definite consolidations are seen. [facility]-[id number] Procedure Note Interface, Radiology Results Incoming - 02/18/2018 7:40 PM CDT EXAMINATION: XR CHEST 1 VW PORTABLE CLINICAL HISTORY: SHORTNESS OF BREATH COMPARISON: No priors IMPRESSION: Prominent scoliosis. Heart and mediastinum somewhat distorted. Bones are osteopenic. No definite consolidations are seen. [facility]-[id number] Performing Organization Address City/[facility]/Zipcode Phone Number [facility] [address] [place] [address] ECG ED Preliminary Interpretation - NOT AN ORDER (02/18/2018 7:08 PM CDT)Only the most recent of2 resultswithin the time period is included. Narrative Performed At [facility] 02/19/20184:12 AM ECG ED Preliminary Interpretation - Not an Order Performed by: REGINO CULLEN Authorized by: HEMA ZACARIAS ECG reviewed by ED Physician in the absence of a director of payroll: yes Previous ECG: Previous ECG:Unavailable Interpretation: Interpretation: normal Rate: ECG rate:77 ECG rate assessment: normal Rhythm: Rhythm: sinus rhythm Ectopy: Ectopy: none QRS: QRS intervals:Normal Conduction: Conduction: normal ST segments: ST segments:Normal T waves: T waves: normal after 08/26/2017 Insurance Payer Benefit Plan / Group Subscriber ID Type Phone Address BCBS BCBS PAR/TRAD PLAN xxxxxxxxxxxx Indemnity MEDICARE MEDICARE PART A AND B xxxxxxxxxx Medicare [facility] CHOICE/CHOICE + xxxxxxxxx HMO/PPO ([place]) [place] [address] Advance Directives Patient has advance care planning documents on file. For more information, please contact:Jeffry Yoon[address] [place] [address]
--- NOTE | 2018-08-27 04:10 | EDPHYS ---
Physician Documentation [facility] Name: Corey Mcadams Age: 68 yrs Sex: Male : 1950 Arrival Date: 08/27/2018 Time: 03:26 Bed 3 Private MD: ED Physician Joshua Ruby HPI: 08/27 03:57 This 68 yrs old Male presents to ER via EMS with complaints of CPR. pkl 03:57 Preceding the arrest, the patient was found down by care home staff. Pre-hospital pkl course: Bystanders at the scene performed CPR. EMS arrived, patient was in asystole. Patient was intubated, 4 rounds of epi and 1 round of bicarb.. Historical: - Allergies: 03:46 budesonide; tl2 - Home Meds: 03:46 B-6 100 mg one tab daily [Active]; baclofen 10 mg Oral tab 1 tab 3 times per day tl2 [Active]; Cymbalta 20 mg Oral cpDR 1 cap nightly [Active]; Depakote 500 mg Oral TbEC 1 tab 2 times per day [Active]; gabapentin 300 mg Oral cap daily [Active]; lithium carbonate 600 mg Oral cap twice a day [Active]; Risperdal 2 mg Oral tab 1 tab 2 times per day [Active]; trazodone 100 mg Oral tab 2 tabs nightly [Active]; Zoloft 100 mg Oral tab 2 tabs once daily [Active]; - PMHx: 03:46 Anxiety; Bipolar disorder; COPD; Depression; scoliosis; Alzheimers; tl2 - Immunization history:: Adult Immunizations up to date. - Ebola Screening: : No symptoms or risks identified at this time. - Social history:: Smoking status: unknown. ROS: 03:57 Unable to obtain ROS due to comatose state, patient is on ventilator. pkl Exam: 03:57 Head/Face: Normocephalic, atraumatic. pkl 03:57 Eyes: Pupils: are fixed and dilated. 03:57 Neck: Exam negative for acute changes. 03:57 Chest/axilla: Exam negative for acute changes. 03:57 Cardiovascular: asystole. 03:57 Respiratory: Respirations: ventilated . 03:57 Abdomen/GI: Exam negative for acute changes. 03:57 Back: Exam negative for acute changes. 03:57 : Exam negative for acute changes. 03:57 Musculoskeletal/extremity: Exam is negative for acute changes. 03:57 Skin: Exam negative for rash. 03:57 Neuro: comatose. Vital Signs: 03:46 Pulse 0; Resp 0 A; Temp 100.0(R); Pulse Ox 81% on 100% BVM; Weight 68.04 kg; Height 5 tl2 ft. 9 in. (175.26 cm); 03:46 Body Mass Index 22.15 (68.04 kg, 175.26 cm) tl2 [place] Coma Score: 03:46 Eye Response: none(1). Verbal Response: none(1). Motor Response: none(1). Total: 3. tl2 MDM: 03:39 Patient medically screened. pkl 03:57 Data reviewed: vital signs, nurses notes. ED course: CPR no response. Patient pkl pronounced [id number]. Administered Medications: No medications were administered Disposition: 03:57 . pkl Disposition: Patient pronounced on 08/27/18 03:27 by Joshua Ruby. Impression: Cardio-respiratory arrest. Signatures: Joshua Ruby MD MD pkl Kathleen Miranda RN RN ss Cleo Parish RN RN tl2 Corrections: (The following items were deleted from the chart) 09:03 04:09 08/27/2018 04:09 Patient pronounced on 08/27/2018 at 03:27 by Joshua Ruby. Impression: Cardio-respiratory arrest. pkl
--- NOTE | 2018-08-27 04:10 | ER ---
Nurse's Notes [facility] Name: Corey Mcadams Age: 68 yrs Sex: Male : 1950 Arrival Date: 08/27/2018 Time: 03: Bed 3 Private MD: Diagnosis: Cardio-respiratory arrest Presentation: 08/27 03:35 Presenting complaint: EMS states: alf reports that pt had been down 6 minutes tl2 before CPR was started. EMS arrived, pt was in asystole, given 4 rounds of epi and 1 round of bicarb. Pt is intubated. Pt is unresponsive, CPR in progress, pale and cyanotic. Care prior to arrival: Oral intubation, CPR via thumper and is still in progress Medication(s) given: 4 rounds epinephrine, 1 round bicarb IV initiated. 20 GA, in the right antecubital area. Compressions began at 02:49. 03:35 Method Of Arrival: EMS: [facility] tl2 03:35 Acuity: CHERRY 1 tl2 03:53 Transition of care: patient was received from another setting of care (long-term care 2 facility)[facility]. Onset of symptoms was August 27, 2018 at 02:40. Risk Assessment: Do you want to hurt yourself or someone else? Patient reports no desire to harm self or others. Initial Sepsis Screen: Does the patient meet any 2 criteria? No. Patient's initial sepsis screen is negative. Does the patient have a suspected source of infection? No. Patient's initial sepsis screen is negative. Triage Assessment: 03:52 General: see triage assessment. tl2 03:52 General: Appears unresponsive. tl2 03:53 General:. tl2 03:54 General: Behavior is unresponsive. tl2 03:54 Pain: Unable to use pain scale. Patient is unresponsive. tl2 Historical: - Allergies: 03:46 budesonide; tl2 - Home Meds: 03:46 B-6 100 mg one tab daily [Active]; baclofen 10 mg Oral tab 1 tab 3 times per day tl2 [Active]; Cymbalta 20 mg Oral cpDR 1 cap nightly [Active]; Depakote 500 mg Oral TbEC 1 tab 2 times per day [Active]; gabapentin 300 mg Oral cap daily [Active]; lithium carbonate 600 mg Oral cap twice a day [Active]; Risperdal 2 mg Oral tab 1 tab 2 times per day [Active]; trazodone 100 mg Oral tab 2 tabs nightly [Active]; Zoloft 100 mg Oral tab 2 tabs once daily [Active]; - PMHx: 03:46 Anxiety; Bipolar disorder; COPD; Depression; scoliosis; Alzheimers; tl2 - Immunization history:: Adult Immunizations up to date. - Ebola Screening: : No symptoms or risks identified at this time. - Social history:: Smoking status: unknown. Screenin:46 Abuse screen: Denies threats or abuse. Nutritional screening: No deficits noted. tl2 Tuberculosis screening: No symptoms or risk factors identified. 03:53 Fall Risk None identified. tl2 Assessment: 03:35 CPR assessment: unresponsive, pupils fixed \\T\\ dilated, no respiratory effort, intubated, tl2 cyanotic, pale. Cardiac rhythm is asystole. General:. Neuro: Level of Consciousness is unresponsive. Cardiovascular: Rhythm is asystole. Derm: Skin is pale. 06:12 Reassessment: unable to reach family. Dr. Barker will sign certificate. [facility] does not have address for family member to release body. 06:24 Reassessment: spoke to Lesley Monet [phone] pt's daughter who states she is bb on her way here and pt's request was to go to "the [facility]" in [place]. 07:00 Reassessment: Pt's family at bedside. . aa5 08:00 Reassessment: home arrangements being completed by Pt's daughter (Lesley). aa5 08:00 Reassessment: ET tube removed and 20 G to R AC dc'd. . aa5 08:21 Reassessment: Body will be released to [facility] per pt's daughter aaAndriy (Lesley Monet). Awaiting Home . 08:55 Reassessment: Body released to [place] [facility] . aa5 Vital Signs: 03:46 Pulse 0; Resp 0 A; Temp 100.0(R); Pulse Ox 81% on 100% BVM; Weight 68.04 kg; Height 5 tl2 ft. 9 in. (175.26 cm); 03:46 Body Mass Index 22.15 (68.04 kg, 175.26 cm) tl2 [place] Coma Score: 03:46 Eye Response: none(1). Verbal Response: none(1). Motor Response: none(1). Total: 3. tl2 ED Course: 03:26 Patient arrived in ED. ds1 03:39 Joshua Ruby MD is Attending Physician. pkl 03:42 Triage completed. tl2 03:46 Patient has correct armband on for positive identification. Bed in low position. tl2 Intubation: 7.5 Fr. ETT placed orally. Successful on first attempt. Placement verified by auscultating bilateral breath sounds, Intubation [employer]EP[employer] per EMS. Maintain EMS IV. Dressing intact. Site clean \\T\\ dry. Gauge \\T\\ site: 20 g R AC. 03:52 No provider procedures requiring assistance completed. tl2 03:53 Arm band placed on. tl2 03:[address] tl2 04:08 Joshua Ruby MD is Pronouncing Provider. pkl 04:16 Cleo Parish RN is Primary Nurse. tl2 Administered Medications: No medications were administered Outcome: 03:27 Outcome Patient tl2 03:27 Patient : Time of 03:27 Pronounced by Joshua Ruby MD 03:27 Condition: 08:55 Patient : Body to home. aa5 09:03 Patient left the ED. ss Signatures: Joshua Ruby MD MD [facility] ds1 Kiersten Aragon, RN YEVGENIY bb Sushila Little RN RN aa5 Kathleen Miranda RN RN ss Cleo Parish RN RN tl2 Corrections: (The following items were deleted from the chart) 04:11 03:46 Pulse 0bpm; Resp 12bpm; Assisted; Pulse Ox 81%; Temp 100.6F Rectal; 68.04 kg; tl2 Height 5 ft. 9 in.; BMI: 22.1; tl2
== END 2018-08-27 09:03 ==
LOC: ER 03:25
DX: G30.9 Alzheimer's disease, unspecified; F02.80 Dementia in other diseases classified elsewhere, unspecified severity, without behavioral disturbance, psychotic disturbance, mood disturbance, and anxiety; J44.9 Chronic obstructive pulmonary disease, unspecified; F31.9 Bipolar disorder, unspecified; F41.9 Anxiety disorder, unspecified; Z79.899 Other long term (current) drug therapy
CPT/HCPCS: 31500; 92950; 99285; J1265; J3475